=== PATIENT | male | born 1980 | race Caucasian/White ===

== ENCOUNTER 2021-07-12 22:30 | Inpatient (IN) ==
--- NOTE | 2021-07-13 00:18 | Emergency Department Note ---
Impression & Plan Alcohol withdrawal Admit to the [facility] service ED Provider Note NAME: LAURA CASTELLANOS AGE: 41 SEX: M ARRIVES VIA: Walk-In INFORMANT: Patient, patient's cousin ED PROVIDER(S): Raquel Gurrola DO CHIEF COMPLAINT: Requesting detox PLAN: Disposition: Admit to the [facility] service Condition: Stable MEDICAL DECISION MAKING: This is a 41-year-old male patient with a history of alcohol abuse who presents to the emergency department requesting alcohol detox in preparation to go to rehab. The patient has been communicating with [facility] in [facility]. They suggest that he go to a medical facility to initiate the detox for alcohol abuse and then they would consider excepting him for a rehab program. This information came from his cousin with whom he is living. The patient suffers from insomnia and has not been sleeping and is now sleeping here in the emergency department. Once the patient was awake and admits that he is agreeable for inpatient detox and then rehab from alcohol addiction. The patient provided laboratory studies and was agreeable to admission. He is receiving a banana bag and began to have some tremors and was given a milligram of IV Ativan. I discussed the case with the [facility]ist and they will evaluate for further management. Triage Nursing notes reviewed and agree with them. Additional history obtained from his cousin who is at the bedside Prior medical records reviewed Vital Signs: reviewed and unremarkable Differential diagnosis: Alcohol intoxication, alcohol withdrawal, electrolyte abnormality ER treatment provided: IV normal saline IV banana bag IV Ativan Diagnostics interpreted by me: ECG: Sinus bradycardia at a rate of [address] segment elevation or signs of ischemia. There is no ectopy. QTC is 453 ms. Cardiac Monitoring: Normal sinus rhythm at a rate of 61 Laboratory studies: See below Imaging studies: As per my interpretation Portable chest x-ray: No acute pulmonary infiltrates or consolidation HPI: 41/M arrives for evaluation of alcohol intoxication. The patient presents to the emergency department requesting alcohol detox in preparation to go to a rehab facility. The patient's cousin explains that he is an alcoholic and is wanting to go [facility] [place] and they are requesting him to go to a medical facility for detox prior to coming to their facility for rehab. ROS: See above HPI for pertinent positives & negatives. A total of 10 systems reviewed and were otherwise negative. PAST MEDICAL HISTORY:Opioid abuse; significant mental health history PAST SURGICAL HISTORY:See Below FAMILY HISTORY:See Below SOCIAL HISTORY:Patient is currently living with his cousin; he does drink approximately 12 to 16 cans of beer per day over the past 4 to 5 months. HOME MEDICATIONS:See list ALLERGIES:See list VITALS:See Below PHYSICAL EXAMINATION: HEENT: Head - normocephalic and atraumatic Pupils are equal, round, and reactive to light. Extraocular eye muscles are intact, and sclera are anicteric. Nose - moist nasal mucosa without discharge. Mouth - moist buccal mucosa. Oropharynx is nonerythematous and there is no tonsillar exudate or edema noted. Neck: Supple; no JVD, nuchal rigidity, cervical lymphadenopathy, or auscultated bruits. Heart: Regular rate and rhythm. There is a normal S1 and S2 with no murmurs, clicks, or gallops appreciated. Lungs: Clear to auscultation bilaterally with no wheezes, rales, or rhonchi. Abdomen: Soft, completely nontender, nondistended, with good bowel sounds. There are no palpable pulsatile masses or hepatosplenomegaly. There is no guarding, rigidity, or rebound noted. Extremities: No evidence of cyanosis, clubbing, or edema. There are easily palpable peripheral pulses. Skin: warm and dry with good turgor and no rashes. ED COURSE: Times/Reassessments: 2340: The patient was evaluated in room A3. A complete history and physical was performed. Previous electronic medical records were reviewed. The patient was able to give a urine specimen as described above. An IV lock was initiated and labs were drawn as above. A portable chest x-ray was performed. Twelve-lead EKG was obtained. An order was placed for continuous cardiac monitoring. The patient was in a normal sinus rhythm at a rate of 61. A banana bag was initiated once the patient was willing to stay in bed. He became more tremulous and he was given 1 mg of IV Ativan. I discussed this with the [facility]ist and they will evaluate for further management. Raquel Gurrola, Past Med/Surg History Medical History Sinusitis Surgical History No pertinent past surgical history Social History Smoking Status: Never smoker Tobacco Type: Cigarettes Hx Substance Use: Yes Prescribed Medications: Marijuana and Opiates Non- Prescribed Medications: IV Drugs Preferred Language: Cymraes Current Living Situation Comment: Currently living in a homeless jail Feels Safe at Home: Yes Allergies Allergies Allergy/AdvReac Type Severity Reaction Status Date / Time liver extract Allergy Unknown Hives WITH Verified 07/13/21 06:24 liver Home Meds Home Medications Medication Instructions Recorded Confirmed methadone 10 mg/5 mL oral solution 61 mg PO QAM 01/17/21 07/13/21 azelastine 137 mcg (0.1 %) nasal 1 spray INTRANASAL BID 05/22/21 07/12/21 spray aerosol celecoxib 100 mg capsule 100 mg PO BID 07/12/21 07/12/21 dexamethasone 0.1 % eye 2 drp OPB BID 07/13/21 07/13/21 drops,suspension (Maxidex) diclofenac sodium 25 mg 25 mg PO BID 07/13/21 07/13/21 tablet,delayed release Results & Data (ED) Vital Signs Vital Signs - 24 hr 07/12/21 22:33 07/13/21 00:33 07/13/21 02:19 Temperature 36.7 C Temperature Source Temporal Artery Scan Pulse Rate 61 Pulse Rate [Finger] 60 56 L Pulse Rhythm [Finger] Regular Respiratory Rate 20 18 18 Respiratory Effort / Characteristics Non-Labored Spontaneous Non-Labored Spontaneous Respiratory Depth Normal Normal Respiratory Pattern Regular Regular Blood Pressure 115/69 Blood Pressure [Right Arm] 97/64 L 100/62 Blood Pressure Mean 84 Blood Pressure Mean [Right Arm] 75 74 Blood Pressure Position Sitting Blood Pressure Position [Right Arm] Sitting Sitting Pulse Oximetry 95 98 92 Oxygen Delivery Method Room Air Room Air Room Air Sepsis Recent Fever Within 48 Hours No Sepsis New/Unexplained Change in Mental Status N/A Sepsis Action Taken by Nursing No Action Required Laboratory Data Result diagrams: 07/13/21 00:00 07/13/21 00:00 Lab Results 07/12/21 07/12/21 07/13/21 Range/Units 23:58 23:58 00:00 WBC (4.8-10.8) K/uL RBC (4.7-6.1) M/uL Hgb (14.0-18.0) g/dL Hct (42-52) % MCV (80-100) fL MCH (25-34) pg MCHC (32-36) g/dL RDW Std Deviation (36.4-46.3) fL RDW Coeff of Jannet (11.5-14.5) % Plt Count (130-400) K/uL MPV (7.4-10.4) fL Immature Gran % (Auto) % Neut % (Auto) % Lymph % (Auto) % [place] % (Auto) % Eos % (Auto) % Baso % (Auto) % Neut # (Auto) (1.4-6.5) K/uL Lymph # (Auto) (1.2-3.4) K/uL [place] # (Auto) (0.11-0.59) K/uL Eos # (Auto) (0-0.5) K/uL Baso # (Auto) (0-0.2) K/uL Immature Gran # (Auto) (0.00-0.02) K/uL Sodium 138 (136-145) mmol/L Potassium 3.5 (3.5-5.1) mmol/L Chloride 103 (98-107) mmol/L Carbon Dioxide 25 (21-32) mmol/L Anion Gap 10.0 (3-11) BUN 4 L (7-18) mg/dl Creatinine 0.54 L (0.6-1.4) mg/dl Est Cr Clr Drug Dosing 148.7 ml/min Est GFR ( Amer) > 150.0 ml/min Est GFR (Non-Af Amer) 129.5 ml/min BUN/Creatinine Ratio 8.2 L (10-20) Glucose 80 (70-99) mg/dl Calcium 9.0 (8.5-10.1) mg/dl Magnesium 2.2 (1.8-2.4) mg/dl Total Bilirubin 0.4 (0.2-1) mg/dl AST 189 H (15-37) U/L ALT 156 H (12-78) U/L Alkaline Phosphatase 175 H (45-117) U/L Total Protein 7.9 (6.4-8.2) gm/dl Albumin 3.3 L (3.4-5.0) gm/dl Globulin 4.6 H (2.5-4.0) gm/dl Albumin/Globulin Ratio 0.7 L (0.9-2) Urine Color Yellow Urine Appearance Clear (Clear) Urine pH 6.0 (4.5-7.5) Ur Specific [place] 1.003 (1.000-1.030) Urine Protein Negative (Negative) Urine Glucose (UA) Negative (Negative) Urine Ketones Negative (Negative) Urine Blood Negative (Negative) Urine Nitrite Negative (Negative) Urine Bilirubin Negative (Negative) Urine Urobilinogen Negative (Negative) Ur Leukocyte Esterase Negative (Negative) Salicylates (2.8-20) mg/dl Urine Opiates Screen Neg (Neg) Ur Methadone, Qual Pos H (Neg) Acetaminophen (10-30) ug/ml Urine Barbiturates Neg (Neg) Ur Phencyclidine (PCP) Neg (Neg) U Amphetamin/Meth Scrn Neg (Neg) MDMA (Ecstasy) Screen Neg (Neg) U Benzodiazepines Scrn Neg (Neg) Ur Cocaine Metabolite Neg (Neg) U Marijuana (THC) Screen Pos H (Neg) Ethyl Alcohol mg/dL (0-3) mg/dl Lyme Disease IgG Ab (Negative) Lyme Disease IgM Ab (Negative) COVID-19 Eval Order SARS-CoV-2 (PCR) (Negative) 07/13/21 07/13/21 07/13/21 Range/Units 00:00 00:00 00:00 WBC 8.29 (4.8-10.8) K/uL RBC 3.82 L (4.7-6.1) M/uL Hgb 14.0 (14.0-18.0) g/dL Hct 40.8 L (42-52) % MCV 106.8 H (80-100) fL MCH 36.6 H (25-34) pg MCHC 34.3 (32-36) g/dL RDW Std Deviation 54.4 H (36.4-46.3) fL RDW Coeff of Jannet 14.0 (11.5-14.5) % Plt Count 160 (130-400) K/uL MPV 9.6 (7.4-10.4) fL Immature Gran % (Auto) 1.2 % Neut % (Auto) 49.8 % Lymph % (Auto) 38.4 % [place] % (Auto) 7.1 % Eos % (Auto) 2.9 % Baso % (Auto) 0.6 % Neut # (Auto) 4.13 (1.4-6.5) K/uL Lymph # (Auto) 3.18 (1.2-3.4) K/uL [place] # (Auto) 0.59 (0.11-0.59) K/uL Eos # (Auto) 0.24 (0-0.5) K/uL Baso # (Auto) 0.05 (0-0.2) K/uL Immature Gran # (Auto) 0.10 H (0.00-0.02) K/uL Sodium (136-145) mmol/L Potassium (3.5-5.1) mmol/L Chloride (98-107) mmol/L Carbon Dioxide (21-32) mmol/L Anion Gap (3-11) BUN (7-18) mg/dl Creatinine (0.6-1.4) mg/dl Est Cr Clr Drug Dosing ml/min Est GFR ( Amer) ml/min Est GFR (Non-Af Amer) ml/min BUN/Creatinine Ratio (10-20) Glucose (70-99) mg/dl Calcium (8.5-10.1) mg/dl Magnesium (1.8-2.4) mg/dl Total Bilirubin (0.2-1) mg/dl AST (15-37) U/L ALT (12-78) U/L Alkaline Phosphatase (45-117) U/L Total Protein (6.4-8.2) gm/dl Albumin (3.4-5.0) gm/dl Globulin (2.5-4.0) gm/dl Albumin/Globulin Ratio (0.9-2) Urine Color Urine Appearance (Clear) Urine pH (4.5-7.5) Ur Specific [place] (1.000-1.030) Urine Protein (Negative) Urine Glucose (UA) (Negative) Urine Ketones (Negative) Urine Blood (Negative) Urine Nitrite (Negative) Urine Bilirubin (Negative) Urine Urobilinogen (Negative) Ur Leukocyte Esterase (Negative) Salicylates 3.7 (2.8-20) mg/dl Urine Opiates Screen (Neg) Ur Methadone, Qual (Neg) Acetaminophen < 2 L (10-30) ug/ml Urine Barbiturates (Neg) Ur Phencyclidine (PCP) (Neg) U Amphetamin/Meth Scrn (Neg) MDMA (Ecstasy) Screen (Neg) U Benzodiazepines Scrn (Neg) Ur Cocaine Metabolite (Neg) U Marijuana (THC) Screen (Neg) Ethyl Alcohol mg/dL 154.1 H (0-3) mg/dl Lyme Disease IgG Ab (Negative) Lyme Disease IgM Ab (Negative) COVID-19 Eval Order SARS-CoV-2 (PCR) (Negative) 07/13/21 07/13/21 07/13/21 Range/Units 00:00 03:24 03:24 WBC (4.8-10.8) K/uL RBC (4.7-6.1) M/uL Hgb (14.0-18.0) g/dL Hct (42-52) % MCV (80-100) fL MCH (25-34) pg MCHC (32-36) g/dL RDW Std Deviation (36.4-46.3) fL RDW Coeff of Jannet (11.5-14.5) % Plt Count (130-400) K/uL MPV (7.4-10.4) fL Immature Gran % (Auto) % Neut % (Auto) % Lymph % (Auto) % [place] % (Auto) % Eos % (Auto) % Baso % (Auto) % Neut # (Auto) (1.4-6.5) K/uL Lymph # (Auto) (1.2-3.4) K/uL [place] # (Auto) (0.11-0.59) K/uL Eos # (Auto) (0-0.5) K/uL Baso # (Auto) (0-0.2) K/uL Immature Gran # (Auto) (0.00-0.02) K/uL Sodium (136-145) mmol/L Potassium (3.5-5.1) mmol/L Chloride (98-107) mmol/L Carbon Dioxide (21-32) mmol/L Anion Gap (3-11) BUN (7-18) mg/dl Creatinine (0.6-1.4) mg/dl Est Cr Clr Drug Dosing ml/min Est GFR ( Amer) ml/min Est GFR (Non-Af Amer) ml/min BUN/Creatinine Ratio (10-20) Glucose (70-99) mg/dl Calcium (8.5-10.1) mg/dl Magnesium (1.8-2.4) mg/dl Total Bilirubin (0.2-1) mg/dl AST (15-37) U/L ALT (12-78) U/L Alkaline Phosphatase (45-117) U/L Total Protein (6.4-8.2) gm/dl Albumin (3.4-5.0) gm/dl Globulin (2.5-4.0) gm/dl Albumin/Globulin Ratio (0.9-2) Urine Color Urine Appearance (Clear) Urine pH (4.5-7.5) Ur Specific [place] (1.000-1.030) Urine Protein (Negative) Urine Glucose (UA) (Negative) Urine Ketones (Negative) Urine Blood (Negative) Urine Nitrite (Negative) Urine Bilirubin (Negative) Urine Urobilinogen (Negative) Ur Leukocyte Esterase (Negative) Salicylates (2.8-20) mg/dl Urine Opiates Screen (Neg) Ur Methadone, Qual (Neg) Acetaminophen (10-30) ug/ml Urine Barbiturates (Neg) Ur Phencyclidine (PCP) (Neg) U Amphetamin/Meth Scrn (Neg) MDMA (Ecstasy) Screen (Neg) U Benzodiazepines Scrn (Neg) Ur Cocaine Metabolite (Neg) U Marijuana (THC) Screen (Neg) Ethyl Alcohol mg/dL (0-3) mg/dl Lyme Disease IgG Ab Negative (Negative) Lyme Disease IgM Ab Negative (Negative) COVID-19 Eval Order Covid19 at [facility] SARS-CoV-2 (PCR) NEGATIVE (Negative) Administered Medications Dexamethasone Sodium Phosphate (Dexamethasone 0.1% Op Soln 5 Ml Btl) 2 drops OP BID REINALDO Stop: 08/12/21 05:44 Last Admin: 07/13/21 06:08 Dose: 2 drops Documented by: [id number] Discontinued Medications Albuterol (Albut/Ipratrop 3mg/0.5mg Neb 3 Ml Vial) 3 ml NEB NOW STA Stop: 07/13/21 04:01 Last Admin: 07/13/21 04:18 Dose: 3 ml Documented by: [id number] Gabapentin (Gabapentin 600 Mg Tab) 600 mg PO ONE STA Stop: 07/13/21 05:36 Last Admin: 07/13/21 06:07 Dose: 600 mg Documented by: [id number] Gabapentin (Gabapentin 600 Mg Tab) 600 mg PO NOW ONE Stop: 07/13/21 06:09 Last Admin: 07/13/21 06:42 Dose: 600 mg Documented by: [id number] Multivitamins 10 ml/ Thiamine HCl 100 mg/ Folic Acid 1 mg/Sodium Chloride 1,011.2 mls @ 1,011.2 mls/hr IV .Q1H ONE Stop: 07/13/21 03:00 Last Infusion: 07/13/21 04:44 Dose: 0 mls/hr Documented by: [id number] Admin: 07/13/21 03:19 Dose: 1,011.2 mls/hr Documented by: [id number] Lorazepam (Ativan) 1 mg in 2 mls @ 2 mls/min IV NOW STA Stop: 07/13/21 02:55 Last Admin: 07/13/21 03:18 Dose: 2 mls/min Documented by: [id number] Discharge Plan Visit Data Chief Complaint: Detox Request Stated Complaint: ALCOHOL DETOX ED Provider: Raquel Gurrola Discharge Problem: Alcohol withdrawal Discharge Instructions Interventions: ED Discharge Assessment Last Done: 07/13/21 05:59 Discharge Problem: Alcohol withdrawal Qualifiers: Complication of substance-induced condition: with unspecified complication Qualified Code(s): F10.239 - Alcohol dependence with withdrawal, unspecified
[2021-07-13 00:22] LABS: Appearance Urine Clear (Clear); Bilirubin Urine Negative (Negative); Blood Urine Negative (Negative); Color Urine Yellow; Glucose Urine UA Negative (Negative); Ketones Urine Negative (Negative); Leukocyte Esterase Urine Negative (Negative); Nitrite Urine Negative (Negative); Protein Urine Negative (Negative); Specific Gravity Urine 1.003 (1.000-1.030); Urobilinogen Urine Negative (Negative)
[2021-07-13 00:40] LABS: Amphetamines+Metham, Urine Neg (Neg); Barbiturates, Urine Neg (Neg); Benzodiazepine, Urine Neg (Neg); Cocaine, Urine Neg (Neg); MDMA (Ecstacy), Urine Neg (Neg); Methadone, Urine Pos (Neg); Opiate, Urine Neg (Neg); Phencyclidine, Urine Neg (Neg)
[2021-07-13 00:41] LABS: Basophils # (auto) 0.05 K/uL (0-0.2); Basophils % (auto) 0.6 %; Eosinophils # (auto) 0.24 K/uL (0-0.5); Eosinophils % (auto) 2.9 %; Hematocrit (blood only) 40.8 % (42-52); Immature Granulocytes % (auto) 1.2 %; Lymphocytes # (auto) 3.18 K/uL (1.2-3.4); Lymphocytes % (auto) 38.4 %; Mean Corpuscular Hemoglobin 36.6 pg (25-34); Mean Corpuscular Hgb Conc 34.3 g/dL (32-36); Mean Corpuscular Volume 106.8 fL (80-100); Mean Platelet Volume 9.6 fL (7.4-10.4); Monocytes # (auto) 0.59 K/uL (0.11-0.59); Monocytes % (auto) 7.1 %; Neutrophils # (auto) 4.13 K/uL (1.4-6.5); Neutrophils % (auto) 49.8 %; Platelet Count 160 K/uL (130-400); RDW Standard Deviation 54.4 fL (36.4-46.3); Red Blood Count 3.82 M/uL (4.7-6.1); White Blood Count 8.29 K/uL (4.8-10.8)
[2021-07-13 00:59] LABS: Alanine Aminotransferase 156 U/L (12-78); Albumin Level 3.3 gm/dl (3.4-5.0); Aspartate Aminotransferase 189 U/L (15-37); BUN Creatinine Ratio 8.2 (10-20); Blood Urea Nitrogen 4 mg/dl (7-18); Carbon Dioxide 25 mmol/L (21-32); Chloride 103 mmol/L (98-107); Creatinine Clr Calc Pharmacy 148.7 ml/min; Est GFR (African American) > 150.0 ml/min; Est GFR (Non-African American) 129.5 ml/min; Glucose 80 mg/dl (70-99); Magnesium 2.2 mg/dl (1.8-2.4); Potassium 3.5 mmol/L (3.5-5.1); Sodium 138 mmol/L (136-145)
[2021-07-13 01:02] LABS: Albumin Globulin Ratio 0.7 (0.9-2); Alkaline Phosphatase 175 U/L (45-117); Bilirubin,Total 0.4 mg/dl (0.2-1); Globulin 4.6 gm/dl (2.5-4.0); Total Protein 7.9 gm/dl (6.4-8.2)
[2021-07-13 01:16] LABS: Acetaminophen < 2 ug/ml (10-30); Salicylate 3.7 mg/dl (2.8-20)
[2021-07-13] MEDS ORDERED: MULTI-VITAMIN INFUSION 10 ML, THIAMINE HCL 100 MG, FOLIC ACID 1 MG in SODIUM CHLORIDE 0... IV ONE (02:01)
[2021-07-13] MEDS ORDERED: LORazepam 1 MG/2 ML VIAL IV STA (02:54)
--- NOTE | 2021-07-13 03:52 | History & Physical Report ---
Date of Service July 13, 2021 Assessment & Plan (1) Alcohol withdrawal: Plan: Alcohol withdrawal Voluntarily confinement to seek detox prior to alcohol rehab placement Worsening headache Rule out brain abscess Patient claims to have history of chronic ear pain/sinus drainage symptoms. Outpatient ENT documentation from March 2021 however do not support patient's claims. Dexamethasone ophthalmic suspension with saline solution nasal rinse recommended twice a day. Outpatient sinus CT requested for atypical facial pain was done last April 2021 and showed mild paranasal sinus mucosal disease with nasal septum deviation to the right. 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 Patient not to be treated until clean/sober from alcohol/drugs as per records. ongoing tobacco abuse Medical telemetry ROSA S, DT precautions MRI brain RE worsening headache, blurred vertigo symptoms Social service RE discharge planning (discharge to alcohol rehab facility once medically stable ) Nicotine patch as needed DVT prophylaxis. SCDs until brain tumor ruled out Full code Text document was generated using [employer] voice recognition software. It may contain grammatical or spelling errors. Kindly contact undersigned for clarification of any documentation item in question. History of Present Illness Chief Complaint: Detox Primary Care Provider: Jose Bills MD History obtained from patient and records. Medical history significant for chronic pain on methadone, HCV, chronic ear pain/sinus drainage, ongoing alcohol/tobacco abuse. Patient interested in quitting alcohol again and going for rehab. Patient sent to the hospital for possible detox. Patient denies unusual chest pain, S OB. No prior history of alcohol withdrawal seizures as per patient. Denies depression/suicidality. Worsening headache symptoms of about 10 years duration as per patient with vertigo/imbalance symptoms. Patient gives history of recurrent ear infections and sinus drainage. Sinus drainage goes down his throat as per patient causing him to cough. 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 Allergies Allergy/AdvReac Type Severity Reaction Status Date / Time liver extract Allergy Unknown Hives WITH Verified 07/13/21 06:24 liver Home Medications Medication Instructions Recorded Confirmed Type methadone 10 mg/5 mL oral solution 61 mg PO QAM 01/17/21 07/13/21 History azelastine 137 mcg (0.1 %) nasal 1 spray INTRANASAL BID 05/22/21 07/12/21 History spray aerosol celecoxib 100 mg capsule 100 mg PO BID 07/12/21 07/12/21 History diclofenac sodium 25 mg 25 mg PO BID 07/13/21 07/13/21 History tablet,delayed release Past Med/Surg History Medical History Sinusitis Surgical History No pertinent past surgical history Social History Smoking Status: Never smoker Tobacco Type: Cigarettes Hx Substance Use: Yes Prescribed Medications: Marijuana and Opiates Non- Prescribed Medications: IV Drugs Preferred Language: Kosovan Current Living Situation Comment: Currently living in a homeless half-way Feels Safe at Home: Yes Review of Systems Review of Systems: As per HPI, all 10 systems reviewed, all other ROS negative Physical Exam Physical Exam: GENERAL: Slightly irate, no respiratory distress, patient standing up during examination SKIN: Normal color, warm, multiple tattoos and piercings HEENT: [place] palpebral conjunctivae, no ptosis, dry buccal mucosa; no discharge on otoscopic examination of both ears, intact TMs bilateral NECK : Supple, no tenderness CHEST : Decreased breath sounds, occasional expiratory wheezes, no tenderness HEART : Bradycardic, no obvious murmurs ABDOMEN: Some distention, nontender EXTREMITIES : No LE swelling/tenderness, no other conspicuous deformities noted NEUROLOGIC : Coherent, no facial asymmetry, no other gross focality Results & Data Results & [facility] Vital Signs (Past 12 Hours) Vital Signs Temp Pulse Pulse Resp BP BP Pulse Ox 07/13/21 02:19 56 L 18 100/62 92 07/13/21 00:33 60 18 97/64 L 98 07/12/21 22:33 36.7 C 61 20 115/69 95 Laboratory Results Laboratory Results WBC 8.29 K/uL (4.8-10.8) 07/13/21 00:00 RBC 3.82 M/uL (4.7-6.1) L 07/13/21 00:00 Hgb 14.0 g/dL (14.0-18.0) 07/13/21 00:00 Hct 40.8 % (42-52) L 07/13/21 00:00 MCV 106.8 fL (80-100) H 07/13/21 00:00 MCH 36.6 pg (25-34) H 07/13/21 00:00 MCHC 34.3 g/dL (32-36) 07/13/21 00:00 RDW Std Deviation 54.4 fL (36.4-46.3) H 07/13/21 00:00 RDW Coeff of Jannet 14.0 % (11.5-14.5) 07/13/21 00:00 Plt Count 160 K/uL (130-400) 07/13/21 00:00 MPV 9.6 fL (7.4-10.4) 07/13/21 00:00 Immature Gran % (Auto) 1.2 % 07/13/21 00:00 Neut % (Auto) 49.8 % 07/13/21 00:00 Lymph % (Auto) 38.4 % 07/13/21 00:00 [place] % (Auto) 7.1 % 07/13/21 00:00 Eos % (Auto) 2.9 % 07/13/21 00:00 Baso % (Auto) 0.6 % 07/13/21 00:00 Neut # (Auto) 4.13 K/uL (1.4-6.5) 07/13/21 00:00 Lymph # (Auto) 3.18 K/uL (1.2-3.4) 07/13/21 00:00 [place] # (Auto) 0.59 K/uL (0.11-0.59) 07/13/21 00:00 Eos # (Auto) 0.24 K/uL (0-0.5) 07/13/21 00:00 Baso # (Auto) 0.05 K/uL (0-0.2) 07/13/21 00:00 Immature Gran # (Auto) 0.10 K/uL (0.00-0.02) H 07/13/21 00:00 Sodium 138 mmol/L (136-145) 07/13/21 00:00 Potassium 3.5 mmol/L (3.5-5.1) 07/13/21 00:00 Chloride 103 mmol/L (98-107) 07/13/21 00:00 Carbon Dioxide 25 mmol/L (21-32) 07/13/21 00:00 Anion Gap 10.0 (3-11) 07/13/21 00:00 BUN 4 mg/dl (7-18) L 07/13/21 00:00 Creatinine 0.54 mg/dl (0.6-1.4) L 07/13/21 00:00 Est Cr Clr Drug Dosing 148.7 ml/min 07/13/21 00:00 Est GFR ( Amer) > 150.0 ml/min 07/13/21 00:00 Est GFR (Non-Af Amer) 129.5 ml/min 07/13/21 00:00 BUN/Creatinine Ratio 8.2 (10-20) L 07/13/21 00:00 Glucose 80 mg/dl (70-99) 07/13/21 00:00 Calcium 9.0 mg/dl (8.5-10.1) 07/13/21 00:00 Magnesium 2.2 mg/dl (1.8-2.4) 07/13/21 00:00 Total Bilirubin 0.4 mg/dl (0.2-1) 07/13/21 00:00 AST 189 U/L (15-37) H 07/13/21 00:00 ALT 156 U/L (12-78) H 07/13/21 00:00 Alkaline Phosphatase 175 U/L (45-117) H 07/13/21 00:00 Total Protein 7.9 gm/dl (6.4-8.2) 07/13/21 00:00 Albumin 3.3 gm/dl (3.4-5.0) L 07/13/21 00:00 Globulin 4.6 gm/dl (2.5-4.0) H 07/13/21 00:00 Albumin/Globulin Ratio 0.7 (0.9-2) L 07/13/21 00:00 Urine Color Yellow 07/12/21 23:58 Urine Appearance Clear (Clear) 07/12/21 23:58 Urine pH 6.0 (4.5-7.5) 07/12/21 23:58 Ur Specific [place] 1.003 (1.000-1.030) 07/12/21 23:58 Urine Protein Negative (Negative) 07/12/21 23:58 Urine Glucose (UA) Negative (Negative) 07/12/21 23:58 Urine Ketones Negative (Negative) 07/12/21 23:58 Urine Blood Negative (Negative) 07/12/21 23:58 Urine Nitrite Negative (Negative) 07/12/21 23:58 Urine Bilirubin Negative (Negative) 07/12/21 23:58 Urine Urobilinogen Negative (Negative) 07/12/21 23:58 Ur Leukocyte Esterase Negative (Negative) 07/12/21 23:58 Salicylates 3.7 mg/dl (2.8-20) 07/13/21 00:00 Urine Opiates Screen Neg (Neg) 07/12/21 23:58 Ur Methadone, Qual Pos (Neg) H 07/12/21 23:58 Acetaminophen < 2 ug/ml (10-30) L 07/13/21 00:00 Urine Barbiturates Neg (Neg) 07/12/21 23:58 Ur Phencyclidine (PCP) Neg (Neg) 07/12/21 23:58 U Amphetamin/Meth Scrn Neg (Neg) 07/12/21 23:58 MDMA (Ecstasy) Screen Neg (Neg) 07/12/21 23:58 U Benzodiazepines Scrn Neg (Neg) 07/12/21 23:58 Ur Cocaine Metabolite Neg (Neg) 07/12/21 23:58 U Marijuana (THC) Screen Pos (Neg) H 07/12/21 23:58 Ethyl Alcohol mg/dL 154.1 mg/dl (0-3) H 07/13/21 00:00 COVID-19 Eval Order Covid19 at [facility] 07/13/21 03:24 Diagnostic Findings Chest x-ray as per my interpretation no infiltrate EKG as per my interpretation : Rate 50, sinus bradycardia, RAD, T wave abnormality septal leads CT Head initial read: No mass, hemorrhage or acute infarct. Small amount of debris in the left maxillarysinus. Fluid and debris in the sphenoid sinuses. Mastoids are clear. Impression:No acute findings. Sinus disease. CT temporal bone initial read: Right mastoids are clear. Right external auditorycanal clear. Middle ear cavityclear. Ossicles intact. Inner ear structures intact. Left mastoids are clear. Left qa auditor ycanal clear. Left middle ear cavityclear. Left ossicles are intact. Left inner ear structures are intact. TMJs are intact. Fluid and debris in the sphenoid sinuses. Impression: Sinusitis (1) Alcohol withdrawal Complication of substance-induced condition: with unspecified complication Qualified Code(s): F10.239 - Alcohol dependence with withdrawal, unspecified
[2021-07-13] MEDS ORDERED: DEXAMETHASONE 0.1% OPB SCH (03:55)
[2021-07-13] MEDS ORDERED: GABAPENTIN 1200MG ALCOHOL WITHDRAWAL LOAD PO STA (03:59)
[2021-07-13] MEDS ORDERED: ALBUT/IPRATROP 3MG/0.5MG NEB 3 ML VIAL NEB STA (04:00)
[2021-07-13 04:50] LABS: Lyme Ab IgG w/WB Rflx Negative (Negative); Lyme Ab IgM w/WB Rflx Negative (Negative)
[2021-07-13] MEDS ORDERED: GABAPENTIN 600 MG TAB PO STA (05:35)
[2021-07-13] MEDS ORDERED: DEXAMETHASONE 0.1% OP SOLN 5 ML BTL OP SCH (05:45)
[2021-07-13] MEDS ORDERED: ACETAMINOPHEN 325 MG TAB PO PRN (06:08)
[2021-07-13] MEDS ORDERED: ATIVAN IV ALCOHOL WITHDRAWL IV PRN (06:08)
[2021-07-13] MEDS ORDERED: GABAPENTIN 600 MG TAB PO ONE (06:08)
[2021-07-13] MEDS ORDERED: LORazepam 3 MG/6 ML VIAL IV PRN (06:08)
--- NOTE | 2021-07-13 08:30 | XRay Report ---
XR chest 1V portable CLINICAL HISTORY: wheeze COMPARISON STUDY: Chest radiograph January 09, 2021. FINDINGS: Lung volumes are normal. Lungs are clear. There is no pneumothorax or pleural effusion. Car diac size is normal. Mediastinal contours are normal. There is no evidence for pulmonary edema. IMPRESSION: No acute cardiopulmonary findings. ACT 112: Negative or not required by law. Electronically signed by: Homero Medley M.D. 07/13/2021 8:29 AM
--- NOTE | 2021-07-13 08:30 | CT Scan Report ---
CT OF THE HEAD WITHOUT CONTRAST CLINICAL HISTORY: Headache. Ear ache and drainage. COMPARISON STUDY: Head CT December 09, 2007. TECHNIQUE: Helical axial images of the head were obtained without IV contrast. Automated exposure con trol was utilized for the study. A dose lowering technique was utilized adhering to the principles o f ALARA. FINDINGS: No acute intracranial hemorrhage, midline shift or mass effect is present. The ventricular system is unremarkable. The basal cisterns are patent. No extra-axial collections are present. There are no findings to suggest acute dural sinus thrombosis or acute territorial infarct. No significant calvarial abnormalities are present. Note is made of secretions within the left maxillary and left sp henoid sinuses. IMPRESSION: 1. No acute intracranial findings. 2. Secretions within left maxillary and sphenoid sinuses. ACT 112: Negative or not required by law. Electronically signed by: Homero Medley M.D. 07/13/2021 8:28 AM
--- NOTE | 2021-07-13 08:34 | CT Scan Report ---
TEMPORAL BONE CT WITHOUT CONTRAST CLINICAL HISTORY: ear pain, drainage, headache COMPARISON STUDY: Head CT December 08, 2017. TECHNIQUE: Thin cut axial images through the temporal bones were obtained without IV contrast. Sagitt al and coronal reconstructions were viewed. Automated exposure control was utilized for the study. A dose lowering technique was utilized adhering to the principles of ALARA. FINDINGS: Moderate mucosal thickening with secretions within the left maxillary sinus are noted. Ther e are secretions within the left sphenoid sinus. Tiny air-fluid level within the right sphenoid sinus is present. There is ethmoid and right frontal sinus mucosal thickening. Mastoid cells are clear. Te mporal bones are unremarkable. The ossicles are intact. No fluid within the middle ears. No acute fra cture or areas of bony destruction are identified within the temporal bones. External auditory canals are unremarkable by CT. Semicircular canals are intact. IMPRESSION: 1. Unremarkable CT of the temporal bones. 2. Paranasal sinus opacification, as described above. ACT 112: Negative or not required by law. Electronically signed by: Homero Medley M.D. 07/13/2021 8:32 AM
[2021-07-13] MEDS: CELECOXIB 100 MG CAP PO SCH ×2 (10:25→22:00)
[2021-07-13] MEDS: METHADONE ORAL SOLN 2 MG/ML PO SCH (10:25)
[2021-07-13] MEDS: AZELASTINE HCL 0.1% NASAL 200 SPRAYS/27,400 MCG BTL SCH ×2 (10:25→22:00)
[2021-07-13] MEDS: GABAPENTIN 600 MG TAB PO SCH ×2 (11:23→18:01)
[2021-07-13] MEDS: LORazepam 1 MG/2 ML VIAL IV PRN (11:23)
[2021-07-13] MEDS ORDERED: GADOBUTROL 65ML VIAL IV ONE (13:30)
--- NOTE | 2021-07-13 13:39 | Magnetic Resonance Report ---
MR brain wo/w con CLINICAL HISTORY: headache, hx ear/sinus infections TECHNIQUE: Multiplanar and multisequence MR images of the brain were obtained prior to and following administration of gadolinium contrast. Comparison: Prior CT head 07/13/2021 FINDINGS: No abnormal restricted diffusion is identified. The white matter is unremarkable. The ventricular sys tem is normal in appearance. There is no evidence of acute intraparenchymal hemorrhage. No extra axia l fluid collections are seen. There are no masses, mass effect, or midline shift. No abnormal enhance ment is seen. The corpus callosum, pituitary gland, and cerebellar tonsils appear grossly unremarkab le. Flow voids of the major intracranial arterial vessels are identified. Mucous thickening is seen in th e left greater than right maxillary sinuses. IMPRESSION: No acute abnormalities. ACT 112: Negative or not required by law. Electronically signed by: Shamar Du M.D. 07/13/2021 1:38 PM
--- NOTE | 2021-07-13 16:07 | Hospitalist Progress Note ---
Date of Service July 13, 2021 Assessment & Plan (1) Alcohol withdrawal: Plan: Alcohol withdrawal Voluntarily confinement to seek detox prior to alcohol rehab placement Code level 154 Continue gabapentin, thiamine, folic acid Ativan as needed Monitor for DTs Counseled to quit drinking May need rehab placement patient agrees Chronic lower back pain S/P surgery Chronic sinus pain--previously evaluated by ENT as per patient Outpatient sinus CT Apr 2021 showed mild paranasal sinus mucosal disease with nasal septum deviation to the right. We will consult pain management Refuses imaging studies On methadone Worsening headache Likely due to alcohol withdrawal MRI Brain:No acute abnormalities. 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 DVT Px: SCDs for now Code Status Full code Admission and Anticipated Discharge Date Admission Date: July 13, 2021 Subjective Patient is seen and examined at bedside States having chronic back pain and sinus pain Admits to using illegal drugs in the past States that he has been using alcohol to combat his pain Denies any chest pain, shortness of breath, dizziness, nausea, abdominal pain Offers no other complaints Review of Systems Review of Systems: All systems reviewed & are unremarkable except as noted in Subjective Physical Exam Physical Exam: Physical Exam: Vitals signs as noted above General Appearance:Thin, no apparent distress, +Tremor Head: normocephalic, Atraumatic Eyes: normal inspection, EOMI Neck: supple, Trachea midline Respiratory/Chest: Normal breath sounds, CTA Cardiovascular: S1, S2, No murmur Abdomen/GI:Soft, Non tender, Bowel sounds present Back+surgical scar Extremities/Musculoskeletal:normal inspection, no edema Neurologic/Psych:AAOX3, grossly no focal neurological deficits Skin: normal color, warm Results & Data Results & Data ([facility]) Vital Signs (Past 12 Hours) Vital Signs Temp Pulse Pulse Pulse Resp BP BP 07/13/21 15:12 37.1 C 82 17 138/81 07/13/21 11:02 36.9 C 79 16 140/90 07/13/21 10:00 68 07/13/21 09:30 36.8 C 68 20 134/80 07/13/21 08:22 62 16 115/69 07/13/21 07:15 16 125/85 07/13/21 06:08 68 16 125/73 07/13/21 06:00 65 18 90/55 L 07/13/21 04:21 87 20 Pulse Ox 07/13/21 15:12 92 07/13/21 11:02 97 07/13/21 10:00 07/13/21 09:30 94 07/13/21 08:22 94 07/13/21 07:15 94 07/13/21 06:08 93 07/13/21 06:00 92 07/13/21 04:21 94 Laboratory Results Short CBC 07/13/21 Range/Units 00:00 WBC 8.29 (4.8-10.8) K/uL Hgb 14.0 (14.0-18.0) g/dL Hct 40.8 L (42-52) % Plt Count 160 (130-400) K/uL BMP 07/13/21 00:00 Sodium 138 Potassium 3.5 Chloride 103 Carbon Dioxide 25 BUN 4 L Creatinine 0.54 L Glucose 80 Calcium 9.0 Liver Function 07/13/21 Range/Units 00:00 Total Bilirubin 0.4 (0.2-1) mg/dl AST 189 H (15-37) U/L ALT 156 H (12-78) U/L Alkaline Phosphatase 175 H (45-117) U/L Albumin 3.3 L (3.4-5.0) gm/dl Urine 07/12/21 Range/Units 23:58 Urine Color Yellow Urine Appearance Clear (Clear) Urine pH 6.0 (4.5-7.5) Ur Specific [address] 1.003 (1.000-1.030) Urine Protein Negative (Negative) Urine Glucose (UA) Negative (Negative) (1) Alcohol withdrawal Complication of substance-induced condition: with unspecified complication Qualified Code(s): F10.239 - Alcohol dependence with withdrawal, unspecified
[2021-07-13] MEDS ORDERED: LACTATED RINGER'S 1,000 ML IV ONE (20:31)
[2021-07-13] MEDS: LORazepam 2 MG/4 ML VIAL IV PRN (22:01)
[2021-07-14] MEDS ORDERED: POTASSIUM CHLORIDE CRTAB 20 MEQ TABCR PO STA (00:13)
[2021-07-14] MEDS: GABAPENTIN 600 MG TAB PO SCH ×3 (00:38→12:44)
[2021-07-14] MEDS: POTASSIUM CHLORIDE / WTR 10 MEQ/100 ML PLCT IV SCH ×2 (01:55→01:56)
[2021-07-14 05:33] LABS: Basophils # (auto) 0.05 K/uL (0-0.2); Basophils % (auto) 0.7 %; Eosinophils # (auto) 0.12 K/uL (0-0.5); Eosinophils % (auto) 1.6 %; Hematocrit (blood only) 40.2 % (42-52); Hemoglobin 13.7 g/dL (14.0-18.0); Immature Granulocytes # (auto) 0.05 K/uL (0.00-0.02); Immature Granulocytes % (auto) 0.7 %; Lymphocytes % (auto) 32.5 %; Mean Corpuscular Hemoglobin 36.1 pg (25-34); Mean Corpuscular Hgb Conc 34.1 g/dL (32-36); Mean Corpuscular Volume 105.8 fL (80-100); Mean Platelet Volume 9.6 fL (7.4-10.4); Monocytes # (auto) 0.77 K/uL (0.11-0.59); Monocytes % (auto) 10.4 %; Neutrophils # (auto) 3.99 K/uL (1.4-6.5); Neutrophils % (auto) 54.1 %; Platelet Count 148 K/uL (130-400); RDW Coefficient of Variation 13.8 % (11.5-14.5); RDW Standard Deviation 53.7 fL (36.4-46.3); White Blood Count 7.38 K/uL (4.8-10.8)
--- NOTE | 2021-07-14 05:51 | Electrocardiogram Report ---
Test Reason : Blood Pressure : / mmHG Vent. Rate : 052 BPM Atrial Rate : 052 BPM P-R Int : 146 ms QRS Dur : 110 ms QT Int : 488 ms P-R-T Axes : 018 090 064 degrees QTc Int : 453 ms Sinus bradycardia Rightward axis Borderline ECG When compared with ECG of 22-MAY-2021 15:45, Vent. rate has decreased BY 39 BPM Incomplete right bundle branch block is no longer Present Confirmed by Galindo Martinez ([id number]) on 07/14/2021 5:51:37 AM Referred By: REFERRED SELF Confirmed By:Galindo Martinez
[2021-07-14] MEDS: LORazepam 1 MG/2 ML VIAL IV PRN ×3 (06:00→19:37)
[2021-07-14 06:07] LABS: Albumin Level 3.3 gm/dl (3.4-5.0); BUN Creatinine Ratio 11.4 (10-20); Calcium 8.8 mg/dl (8.5-10.1); Creatinine Clr Calc Pharmacy 127.5 ml/min; Est GFR (African American) 140.9 ml/min; Est GFR (Non-African American) 121.5 ml/min; Magnesium 2.2 mg/dl (1.8-2.4); Potassium 4.2 mmol/L (3.5-5.1)
[2021-07-14 06:18] LABS: Albumin Globulin Ratio 0.7 (0.9-2); Bilirubin,Total 0.7 mg/dl (0.2-1); Globulin 4.5 gm/dl (2.5-4.0); Thyroid Stimulating Hormone 2.09 uIu/ml (0.300-4.500); Total Protein 7.8 gm/dl (6.4-8.2)
--- NOTE | 2021-07-14 06:55 | Communication Note ---
Date of Service: July 14, 2021 Overnight developments : Patient noted to have erratic behavior last night. Bottle of methadone prescription later found in patient's shoe. Patient upset about "people going into my room and taking my stuff." Patient contemplating leaving hospital AMA but undecided for now. Hold IV Ativan and gabapentin until patient makes decision. Will relay to AM provider.
[2021-07-14] MEDS: CELECOXIB 100 MG CAP PO SCH ×2 (07:58→23:57)
[2021-07-14] MEDS: LORazepam 0.5 MG TAB PO PRN (07:58)
[2021-07-14] MEDS: MULTIVITAMIN TAB PO SCH ×2 (08:52→09:00)
[2021-07-14] MEDS: FOLIC ACID 1 MG TAB PO SCH ×2 (08:52→09:00)
[2021-07-14] MEDS: METHADONE ORAL SOLN 2 MG/ML PO SCH (08:52)
[2021-07-14] MEDS: AZELASTINE HCL 0.1% NASAL 200 SPRAYS/27,400 MCG BTL SCH ×2 (08:59→21:04)
[2021-07-14] MEDS: THIAMINE HCL 100 MG TAB PO SCH (09:00)
[2021-07-14] MEDS ORDERED: Nursing to Pharmacy Communication SCH (11:45)
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
[2021-07-14] MEDS: DEXAMETHASONE 0.1% OP SOLN 5 ML BTL OP SCH ×3 (13:13→21:04)
--- NOTE | 2021-07-14 16:09 | Hospitalist Progress Note ---
Date of Service July 14, 2021 Assessment & Plan (1) Alcohol withdrawal: Plan: Alcohol withdrawal Voluntarily confinement to seek detox prior to alcohol rehab placement Code level 154 Continue gabapentin, thiamine, folic acid Ativan as needed Remains in withdrawal symptoms We will continue current management Chronic lower back pain S/P surgery Chronic sinus pain--previously evaluated by ENT as per patient Outpatient sinus CT Apr 2021 showed mild paranasal sinus mucosal disease with nasal septum deviation to the right. Appreciate pain therapy input and recommendation We will continue his outpatient pain medications Worsening headache Likely due to alcohol withdrawal MRI Brain:No acute abnormalities. 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 DVT Px: SCDs for now Code Status Full code Admission and Anticipated Discharge Date Admission Date: July 13, 2021 Subjective 07/14/2021 The patient was seen and examined in medical telemetry unit He has been complaining of pain since this morning and remains in tremors He wanted to sign out AMA but after discussion about pain therapy consultation and medications for the withdrawal symptoms he planed to stay Review of Systems Review of Systems: All systems reviewed and are unremarkable except as noted below Physical Exam Physical Exam: Sitting at the edge of the bed with tremors involving the hands Constitutional: + ill appearing and average body habitus Eyes: PERRL, conjunctivae normal, anicteric sclerae ENMT: external ear and nose normal, oropharynx normal Neck: trachea midline, no thyromegaly Respiratory: no respiratory distress Auscultation: lungs clear to auscultation bilaterally Cardiovascular: Rate/Rhythm: regular rate and regular rhythm; not tachycardic Heart Sounds: normal S1 and normal S2; no murmur Extremities: no edema Gastrointestinal (Abdomen): Inspection/Auscultation: normal bowel sounds; abdomen not distended Percussion/Palpation: abdomen soft; abdomen nontender Musculoskeletal: No acute arthritis in any joint Neurologic: Alert, awake and oriented x3. Generally weak. Has tremors involving the outstretched hands with unsteady on gait Results & Data [facility] Vital Signs (Past 12 Hours) Vital Signs Temp Pulse Resp BP BP Pulse Ox 07/14/21 11:15 36.8 C 62 18 145/89 H 94 07/14/21 07:56 37.1 C 66 18 132/87 94 07/14/21 04:55 36.6 C 65 20 146/100 H 94 Laboratory Results Short CBC 07/14/21 Range/Units 05:25 WBC 7.38 (4.8-10.8) K/uL Hgb 13.7 L (14.0-18.0) g/dL Hct 40.2 L (42-52) % Plt Count 148 (130-400) K/uL BMP 07/14/21 05:24 Sodium 137 Potassium 4.2 D Chloride 106 Carbon Dioxide 26 BUN 7 Creatinine 0.63 Glucose 101 H Calcium 8.8 Liver Function 07/14/21 Range/Units 05:24 Total Bilirubin 0.7 (0.2-1) mg/dl AST 121 H (15-37) U/L ALT 147 H (12-78) U/L Alkaline Phosphatase 172 H (45-117) U/L Albumin 3.3 L (3.4-5.0) gm/dl Medications Administered Current Inpatient Medications Acetaminophen (Acetaminophen 325 Mg Tab) 325 mg PO Q6H PRN PRN Reason: Mild Pain Stop: 08/12/21 06:07 Azelastine HCl (Azelastine Hcl 0.1% Nasal 200 Sprays/27,400 Mcg Btl) 1 sprays NA BID REINALDO Stop: 08/12/21 08:59 Last Admin: 07/14/21 08:59 Dose: Not Given Documented by: Celecoxib (Celecoxib 100 Mg Cap) 100 mg PO BID REINALDO Stop: 08/12/21 08:59 Last Admin: 07/14/21 07:58 Dose: 100 mg Documented by: Dexamethasone Sodium Phosphate (Dexamethasone 0.1% Op Soln 5 Ml Btl) 1 drops OP Q6H REINALDO Stop: 08/13/21 09:14 Last Admin: 07/14/21 13:15 Dose: Not Given Documented by: Folic Acid (Folic Acid 1 Mg Tab) 1 mg PO QAM REINALDO Stop: 08/13/21 08:59 Last Admin: 07/14/21 09:00 Dose: Not Given Documented by: Promethazine HCl 6.25 mg/ (Sodium Chloride) 50.25 mls @ 201 mls/hr IV Q6H PRN PRN Reason: Nausea And Vomiting Stop: 08/12/21 06:07 Lorazepam (Ativan) 1 mg in 2 mls @ 2 mls/min IV UD PRN; Protocol PRN Reason: EtOH Withdrawl AWSS Score 6,7 Stop: 08/12/21 06:07 Last Admin: 07/14/21 13:10 Dose: 2 mls/min Documented by: Lorazepam (Ativan) 2 mg in 4 mls @ 4 mls/min IV UD PRN; Protocol PRN Reason: EtOH Withdrawl AWSS Score 8,9 Stop: 08/12/21 06:07 Last Admin: 07/13/21 22:01 Dose: 4 mls/min Documented by: Lorazepam (Ativan) 3 mg in 6 mls @ 4 mls/min IV ONCE PRN; Protocol PRN Reason: EtOH Withdrawl AWSS Score >=10 Stop: 08/12/21 06:07 Ketorolac Tromethamine (Ketorolac Tromethamine 15 Mg/Ml Vial) 15 mg IV Q6H PRN PRN Reason: Pain Stop: 07/18/21 06:07 Lorazepam (Lorazepam 0.5 Mg Tab) 0.5 mg PO TID PRN PRN Reason: Anxiety Stop: 08/12/21 19:16 Last Admin: 07/14/21 07:58 Dose: 0.5 mg Documented by: Methadone HCl (Methadone Oral Soln 2 Mg/Ml) 61 mg PO [facility] Stop: 07/27/21 08:59 Last Admin: 07/14/21 08:52 Dose: 61 mg Documented by: Multivitamins ([facility]ivitamin Tab) [facility] [place]: 08/13/21 08:59 Last Admin: 07/14/21 09:00 Dose: Not Given Documented by: Methadone: Patient's Own Controlled Med 1 1 ea [facility] [place] [place]: 07/29/21 08:59 Thiamine HCl (Thiamine Hcl 100 Mg Tab) 100 mg [facility] [place] Stop: 08/13/21 08:59 Last Admin: 07/14/21 09:00 Dose: Not Given Documented by: (1) Alcohol withdrawal Complication of substance-induced condition: with unspecified complication Qualified Code(s): F10.239 - Alcohol dependence with withdrawal, unspecified
[2021-07-14] MEDS: KETOROLAC TROMETHAMINE 15 MG/ML VIAL IV PRN (18:40)
[2021-07-14] MEDS ORDERED: KETOROLAC TROMETHAMINE 15 MG/ML VIAL IV ONE (23:53)
[2021-07-15] MEDS: LORazepam 0.5 MG TAB PO PRN (00:10)
[2021-07-15] MEDS: PROMETHAZINE HCL 12.5 MG/10 ML UDP PO PRN (01:55)
[2021-07-15] MEDS: DEXAMETHASONE 0.1% OP SOLN 5 ML BTL OP SCH ×4 (03:45→21:09)
[2021-07-15] MEDS: LORazepam 2 MG/4 ML VIAL IV PRN ×3 (03:58→14:50)
[2021-07-15] MEDS ORDERED: GABAPENTIN 600 MG TAB PO SCH (04:00)
[2021-07-15] MEDS: KETOROLAC TROMETHAMINE 15 MG/ML VIAL IV PRN (08:57)
[2021-07-15] MEDS: AZELASTINE HCL 0.1% NASAL 200 SPRAYS/27,400 MCG BTL SCH ×2 (08:58→20:15)
[2021-07-15] MEDS: MULTIVITAMIN TAB PO SCH (08:58)
[2021-07-15] MEDS: FOLIC ACID 1 MG TAB PO SCH (08:58)
[2021-07-15] MEDS: THIAMINE HCL 100 MG TAB PO SCH (08:59)
[2021-07-15] MEDS: CELECOXIB 100 MG CAP PO SCH ×2 (08:59→20:15)
[2021-07-15] MEDS: METHADONE ORAL SOLN 2 MG/ML PO SCH (09:00)
[2021-07-15] MEDS: PROMETHAZINE HCL 6.25 MG in SODIUM CHLORIDE 0.9% 50 ML IV PRN ×2 (14:51→21:10)
--- NOTE | 2021-07-15 18:11 | Hospitalist Progress Note ---
Date of Service July 15, 2021 Assessment & Plan (1) Alcohol withdrawal: Plan: Alcohol withdrawal Voluntarily confinement to seek detox prior to alcohol rehab placement Code level 154 Continue gabapentin, thiamine, folic acid Ativan as needed Remains in withdrawal symptoms We will continue current management Threatening to sign out AMA again Remains mentally clear Will need inpatient rehab and the patient has been agreeable to that Chronic lower back pain S/P surgery Chronic sinus pain--previously evaluated by ENT as per patient Outpatient sinus CT Apr 2021 showed mild paranasal sinus mucosal disease with nasal septum deviation to the right. Appreciate pain therapy input and recommendation We will continue his outpatient pain medications Worsening headache Likely due to alcohol withdrawal MRI Brain:No acute abnormalities. 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 ongoing tobacco abuse Door Person to quit tobacco use DVT Px: SCDs for now Code Status Full code Admission and Anticipated Discharge Date Admission Date: July 13, 2021 Subjective 07/14/2021 The patient was seen and examined in medical telemetry unit He has been complaining of pain since this morning and remains in tremors He wanted to sign out AMA but after discussion about pain therapy consultation and medications for the withdrawal symptoms he planed to stay July 15, 2021 The patient was seen and examined in medical telemetry unit He threatened to sign out AMA again He wants to go out and smoke which was not permitted Review of Systems Review of Systems: All systems reviewed and are unremarkable except as noted below Neurologic: Has tremors on outstretched hands and unsteady gait Physical Exam Physical Exam: Sitting at the edge of the bed with tremors involving the hands Constitutional: + ill appearing and average body habitus Eyes: PERRL, conjunctivae normal, anicteric sclerae ENMT: external ear and nose normal, oropharynx normal Neck: trachea midline, no thyromegaly Respiratory: no respiratory distress Auscultation: lungs clear to auscultation bilaterally Cardiovascular: Rate/Rhythm: regular rate and regular rhythm; not tachycardic Heart Sounds: normal S1 and normal S2; no murmur Extremities: no edema Gastrointestinal (Abdomen): Inspection/Auscultation: normal bowel sounds; abdomen not distended Percussion/Palpation: abdomen soft; abdomen nontender Musculoskeletal: No acute arthritis in any joint Neurologic: Alert, awake and oriented x3, generally weak Results & Data Results & Data ([facility]) Vital Signs (Past 12 Hours) Vital Signs Temp Pulse Pulse Resp BP Pulse Ox 07/15/21 16:00 56 L 07/15/21 14:59 37.3 C 70 20 143/81 H 93 07/15/21 08:00 65 Medications Administered Current Inpatient Medications Acetaminophen (Acetaminophen 325 Mg Tab) 325 mg PO Q6H PRN PRN Reason: Mild Pain Stop: 08/12/21 06:07 Azelastine HCl (Azelastine Hcl 0.1% Nasal 200 Sprays/27,400 Mcg Btl) 1 sprays NA BID REINALDO Stop: 08/12/21 08:59 Last Admin: 07/15/21 08:58 Dose: 1 sprays Documented by: Celecoxib (Celecoxib 100 Mg Cap) 100 mg PO BID REINALDO Stop: 08/12/21 08:59 Last Admin: 07/15/21 08:59 Dose: 100 mg Documented by: Dexamethasone Sodium Phosphate (Dexamethasone 0.1% Op Soln 5 Ml Btl) 1 drops OP Q6H REINALDO Stop: 08/13/21 09:14 Last Admin: 07/15/21 14:51 Dose: Not Given Documented by: Folic Acid (Folic Acid 1 Mg Tab) 1 mg PO QAM REINALDO Stop: 08/13/21 08:59 Last Admin: 07/15/21 08:58 Dose: Not Given Documented by: Promethazine HCl 6.25 mg/ (Sodium Chloride) 50.25 mls @ 201 mls/hr IV Q6H PRN PRN Reason: Nausea And Vomiting Stop: 08/12/21 06:07 Last Infusion: 07/15/21 15:12 Dose: Infused Documented by: Lorazepam (Ativan) 1 mg in 2 mls @ 2 mls/min IV UD PRN; Protocol PRN Reason: EtOH Withdrawl AWSS Score 6,7 Stop: 08/12/21 06:07 Last Admin: 07/14/21 19:37 Dose: 2 mls/min Documented by: Lorazepam (Ativan) 2 mg in 4 mls @ 4 mls/min IV UD PRN; Protocol PRN Reason: EtOH Withdrawl AWSS Score 8,9 Stop: 08/12/21 06:07 Last Admin: 07/15/21 14:50 Dose: 4 mls/min Documented by: Lorazepam (Ativan) 3 mg in 6 mls @ 4 mls/min IV ONCE PRN; Protocol PRN Reason: EtOH Withdrawl AWSS Score >=10 Stop: 08/12/21 06:07 Ketorolac Tromethamine (Ketorolac Tromethamine 15 Mg/Ml Vial) 15 mg IV Q6H PRN PRN Reason: Pain Stop: 07/18/21 06:07 Last Admin: 07/15/21 08:57 Dose: 15 mg Documented by: Lorazepam (Lorazepam 0.5 Mg Tab) 0.5 mg PO TID PRN PRN Reason: Anxiety Stop: 08/12/21 19:16 Last Admin: 07/15/21 00:10 Dose: 0.5 mg Documented by: Methadone HCl (Methadone Oral Soln 2 Mg/Ml) 61 mg PO [facility] Stop: 07/27/21 08:59 Last Admin: 07/15/21 09:00 Dose: 61 mg Documented by: Multivitamins (Multivitamin Tab) 1 tab PO [facility] Stop: 08/13/21 08:59 Last Admin: 07/15/21 08:58 Dose: Not Given Documented by: Methadone: Patient's Own Controlled Med 1 1 ea PO [facility] Stop: 07/29/21 08:59 Last Admin: 07/15/21 09:01 Dose: Not Given Documented by: Promethazine HCl (Promethazine Hcl 12.5 Mg/10 Ml Udp) 12.5 mg PO Q6H PRN PRN Reason: Nausea And Vomiting Stop: 08/14/21 01:03 Last Admin: 07/15/21 01:55 Dose: 12.5 mg Documented by: Thiamine HCl (Thiamine Hcl 100 Mg Tab) 100 mg PO [facility] Stop: 08/13/21 08:59 Last Admin: 07/15/21 08:59 Dose: Not Given Documented by: (1) Alcohol withdrawal Complication of substance-induced condition: with unspecified complication Qualified Code(s): F10.239 - Alcohol dependence with withdrawal, unspecified
[2021-07-15] MEDS: LORazepam 1 MG/2 ML VIAL IV PRN ×2 (20:34→22:54)
[2021-07-15 22:31] LABS: Marijuana Quant, GCMS Urine 842 ng/mL (<5); Methadone, Ur Metabolite 1100 ng/mL (<100)
[2021-07-16] MEDS: LORazepam 0.5 MG TAB PO PRN (00:26)
[2021-07-16] MEDS: LORazepam 2 MG/4 ML VIAL IV PRN (00:57)
[2021-07-16] MEDS: KETOROLAC TROMETHAMINE 15 MG/ML VIAL IV PRN (01:48)
[2021-07-16] MEDS: PROMETHAZINE HCL 12.5 MG/10 ML UDP PO PRN (01:51)
[2021-07-16] MEDS: LORazepam 1 MG/2 ML VIAL IV PRN ×3 (02:44→06:57)
[2021-07-16] MEDS: DEXAMETHASONE 0.1% OP SOLN 5 ML BTL OP SCH ×2 (04:04→09:43)
[2021-07-16] MEDS: METHADONE ORAL SOLN 2 MG/ML PO SCH (09:24)
[2021-07-16] MEDS: CELECOXIB 100 MG CAP PO SCH (09:24)
[2021-07-16] MEDS: FOLIC ACID 1 MG TAB PO SCH (09:42)
[2021-07-16] MEDS: AZELASTINE HCL 0.1% NASAL 200 SPRAYS/27,400 MCG BTL SCH (09:42)
[2021-07-16] MEDS: THIAMINE HCL 100 MG TAB PO SCH (09:42)
[2021-07-16] MEDS: MULTIVITAMIN TAB PO SCH (09:42)
--- NOTE | 2021-07-16 10:19 | Hospitalist Progress Note ---
Date of Service July 16, 2021 Assessment & Plan (1) Alcohol withdrawal: Plan: Alcohol withdrawal Voluntarily confinement to seek detox prior to alcohol rehab placement Code level 154 Continue gabapentin, thiamine, folic acid Ativan as needed We will continue current management Threatening to sign out AMA Remains mentally clear and without any instability with gait Denies any symptoms and does not have any sign of withdrawal He wants to be discharged and will try to go as an inpatient rehab following discharge Chronic lower back pain S/P surgery Chronic sinus pain--previously evaluated by ENT as per patient Outpatient sinus CT Apr 2021 showed mild paranasal sinus mucosal disease with nasal septum deviation to the right. Appreciate pain therapy input and recommendation We will continue his outpatient pain medications Has not been requiring any extra medicine for pain control and will continue his home medication as usual Worsening headache Likely due to alcohol withdrawal MRI Brain:No acute abnormalities. 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 DVT Px: SCDs for now Code Status Full code Discussed with the telehealth case manager who is trying to get him to a inpatient rehab facility The patient has been trying to get into inpatient facility as well He definitely wants to go home and try to go to inpatient facility by himself He understands that process of getting into an inpatient rehab may be difficult for him to arrange as an outpatient Admission and Anticipated Discharge Date Admission Date: July 13, 2021 Subjective 07/14/2021 The patient was seen and examined in medical telemetry unit He has been complaining of pain since this morning and remains in tremors He wanted to sign out AMA but after discussion about pain therapy consultation and medications for the withdrawal symptoms he planed to stay July 15, 2021 The patient was seen and examined in medical telemetry unit He threatened to sign out AMA again He wants to go out and smoke which was not permitted 07/16/2021 The patient was seen and examined in medical telemetry unit He has been agitated and wants to leave the hospital but does not want to sign out AMA He wants to go to inpatient rehab and want to try from home He denies any symptoms of more pain, palpitation or tremors Review of Systems Review of Systems: All systems reviewed and are unremarkable except as noted below Physical Exam Physical Exam: Walking around in the room without any acute symptoms and/or instability with gait Constitutional: average body habitus; not ill appearing Eyes: PERRL, conjunctivae normal, anicteric sclerae ENMT: external ear and nose normal, oropharynx normal Neck: trachea midline, no thyromegaly Respiratory: no respiratory distress Auscultation: lungs clear to auscultation bilaterally Cardiovascular: Rate/Rhythm: regular rate and regular rhythm; not tachycardic Heart Sounds: normal S1 and normal S2; no murmur Extremities: no edema Gastrointestinal (Abdomen): Inspection/Auscultation: normal bowel sounds; abdomen not distended Percussion/Palpation: abdomen soft; abdomen nontender Musculoskeletal: No acute arthritis in any joint Neurologic: Alert, awake and oriented x3. No focal sensory and motor deficit appreciated. No significant tremors involving the outstretched hands Psychiatric: Mood: + anxious mood and + irritable mood Insight: good insight Results & Data Results & Data ([facility]) Vital Signs (Past 12 Hours) Vital Signs Temp Pulse Pulse Resp BP BP Pulse Ox 07/16/21 06:51 36.5 C 85 20 132/92 97 07/16/21 05:00 36.8 C 110 H 20 121/84 98 07/16/21 02:44 36.8 C 89 20 118/80 96 07/16/21 00:54 36.7 C 110 H 20 130/95 96 07/16/21 00:00 93 H 07/15/21 23:53 37.0 C 105 H 18 113/85 96 Medications Administered Current Inpatient Medications Acetaminophen (Acetaminophen 325 Mg Tab) 325 mg PO Q6H PRN PRN Reason: Mild Pain Stop: 08/12/21 06:07 Azelastine HCl (Azelastine Hcl 0.1% Nasal 200 Sprays/27,400 Mcg Btl) 1 sprays NA BID REINALDO Stop: 08/12/21 08:59 Last Admin: 07/16/21 09:42 Dose: 1 sprays Documented by: Celecoxib (Celecoxib 100 Mg Cap) 100 mg PO BID REINALDO Stop: 08/12/21 08:59 Last Admin: 07/16/21 09:24 Dose: 100 mg Documented by: Dexamethasone Sodium Phosphate (Dexamethasone 0.1% Op Soln 5 Ml Btl) 1 drops OP Q6H REINALDO Stop: 08/13/21 09:14 Last Admin: 07/16/21 09:43 Dose: 1 drops Documented by: Folic Acid ([facility]olic Acid 1 Mg Tab) [facility] Stop: 08/13/21 08:59 Last Admin: 07/16/21 09:42 Dose: Not Given Documented by: Promethazine HCl 6.25 mg/ (Sodium Chloride) 50.25 mls @ 201 mls/hr IV Q6H PRN PRN Reason: Nausea And Vomiting Stop: 08/12/21 06:07 Last Infusion: 07/15/21 21:30 Dose: Infused Documented by: Lorazepam (Ativan) 3 mg in 6 mls @ 4 mls/min IV ONCE PRN; Protocol PRN Reason: EtOH Withdrawl AWSS Score >=10 Stop: 08/12/21 06:07 Ketorolac Tromethamine (Ketorolac Tromethamine 15 Mg/Ml Vial) 15 mg IV Q6H PRN PRN Reason: Pain Stop: 07/18/21 06:07 Last Admin: 07/16/21 01:48 Dose: 15 mg Documented by: Lorazepam (Lorazepam 0.5 Mg Tab) 0.5 mg PO TID PRN PRN Reason: Anxiety Stop: 08/12/21 19:16 Last Admin: 07/16/21 00:26 Dose: 0.5 mg Documented by: Methadone HCl (Methadone Oral Soln 2 Mg/Ml) 61 mg PO [facility] Stop: 07/27/21 08:59 Last Admin: 07/16/21 09:24 Dose: 61 mg Documented by: Multivitamins (Multivitamin Tab) 1 [facility] [place] Stop: 08/13/21 08:59 Last Admin: 07/16/21 09:42 Dose: Not Given Documented by: Methadone: Patient's Own Controlled Med 1 1 ea [facility] [place] Stop: 07/29/21 08:59 Last Admin: 07/16/21 09:42 Dose: Not Given Documented by: Promethazine HCl (Promethazine Hcl 12.5 Mg/10 Ml Udp) 12.5 mg PO Q6H PRN PRN Reason: Nausea And Vomiting Stop: 08/14/21 01:03 Last Admin: 07/16/21 01:51 Dose: 12.5 mg Documented by: Thiamine HCl (Thiamine Hcl 100 Mg Tab) [facility] [place] Stop: 08/13/21 08:59 Last Admin: 07/16/21 09:42 Dose: Not Given Documented by: (1) Alcohol withdrawal Complication of substance-induced condition: with unspecified complication Qualified Code(s): F10.239 - Alcohol dependence with withdrawal, unspecified
[2021-07-16] MEDS ORDERED: GABAPENTIN 600 MG TAB PO SCH (16:00)
--- NOTE | 2021-07-17 07:25 | Discharge Summary ---
Date of Service July 17, 2021 Admission HPI Per Admitting Provider History obtained from patient and records. Medical history significant for chronic pain on methadone, HCV, chronic ear pain/sinus drainage, ongoing alcohol/tobacco abuse. Patient interested in quitting alcohol again and going for rehab. Patient sent to the hospital for possible detox. Patient denies unusual chest pain, S OB. No prior history of alcohol withdrawal seizures as per patient. Denies depression/suicidality. Worsening headache symptoms of about 10 years duration as per patient with vertigo/imbalance symptoms. Patient gives history of recurrent ear infections and sinus drainage. Sinus drainage goes down his throat as per patient causing him to cough. 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 Admission Exam Per Admitting Provider Physical Exam: GENERAL: Slightly irate, no respiratory distress, patient standing up during examination SKIN: Normal color, warm, multiple tattoos and piercings HEENT: [place] palpebral conjunctivae, no ptosis, dry buccal mucosa; no discharge on otoscopic examination of both ears, intact TMs bilateral NECK : Supple, no tenderness CHEST : Decreased breath sounds, occasional expiratory wheezes, no tenderness HEART : Bradycardic, no obvious murmurs ABDOMEN: Some distention, nontender EXTREMITIES : No LE swelling/tenderness, no other conspicuous deformities noted NEUROLOGIC : Coherent, no facial asymmetry, no other gross focality Principal Diagnosis Alcohol withdrawal-resolved, alcoholism, chronic pain on methadone, history of HCV Discharge Exam Walking around in the room without any acute symptoms and/or instability with gait Constitutional average body habitus; not ill appearing Eyes PERRL, conjunctivae normal, anicteric sclerae ENMT external ear and nose normal, oropharynx normal Neck trachea midline, no thyromegaly Respiratory no respiratory distress Auscultation: lungs clear to auscultation bilaterally Cardiovascular Rate/Rhythm: regular rate and regular rhythm; not tachycardic Heart Sounds: normal S1 and normal S2; no murmur Extremities: no edema Gastrointestinal (Abdomen) Inspection/Auscultation: normal bowel sounds; abdomen not distended Percussion/Palpation: abdomen soft; abdomen nontender Psychiatric Mood: + anxious mood and + irritable mood Insight: good insight Discharge Data Allergies Allergy/AdvReac Type Severity Reaction Status Date / Time liver extract Allergy Unknown Hives WITH Verified 07/13/21 06:24 liver Consultations 07/13/21 03:11 ED Decision to Admit Stat 07/13/21 14:13 Consult Pain Management Routine Ordered Studies 07/13/21 03:49 CT temporal bones wo con Urgent 07/13/21 03:50 CT head/brain wo con Urgent 07/13/21 06:24 MR brain wo/w con Routine Hospital Course (1) Alcohol withdrawal: Alcohol withdrawal Voluntarily confinement to seek detox prior to alcohol rehab placement Code level 154 Continue gabapentin, thiamine, folic acid Ativan as needed We will continue current management Threatening to sign out AMA Remains mentally clear and without any instability with gait Denies any symptoms and does not have any sign of withdrawal He wants to be discharged and will try to go as an inpatient rehab following discharge Chronic lower back pain S/P surgery Chronic sinus pain--previously evaluated by ENT as per patient Outpatient sinus CT Apr 2021 showed mild paranasal sinus mucosal disease with nasal septum deviation to the right. Appreciate pain therapy input and recommendation We will continue his outpatient pain medications Has not been requiring any extra medicine for pain control and will continue his home medication as usual Worsening headache Likely due to alcohol withdrawal MRI Brain:No acute abnormalities. 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 DVT Px: SCDs for now Code Status Full code Discussed with the caser up who is trying to get him to a inpatient rehab facility The patient has been trying to get into inpatient facility as well He definitely wants to go home and try to go to inpatient facility by himself He understands that process of getting into an inpatient rehab may be difficult for him to arrange as an outpatient Total Time Total Time Spent Total Time Spent (In Minutes): 45 minutes Discharge Plan Discharge Items Patient Disposition: Home - Self-Care Reason For Visit: ETOH WITHDRAWAL Discharge Diagnosis: Alcohol withdrawal-resolved, alcoholism, chronic pain on methadone, history of HCV Condition on Discharge: Fair Activity: Resume your previous activity Non-emergency contact: Primary Care Provider Call non-emergency contact if: you have any medication questions and your symptoms worsen Follow-up/Referrals: Jose Bills MD [Primary Care Provider] - (Your doctor's office will call you with an appointment within 7 days) Diet: Regular Addtl Attending Provider Instructions: Strongly advised to quit alcohol drinking Strongly advised to go to inpatient rehab Keep appointment with your pain therapist as an outpatient Pending Studies at Discharge: No Stand-Alone Forms: [facility], Work/School Release, Smoking Cessation, Suicide Prevention Resources Medications and DC Order Prescriptions: New folic acid 1 mg Tablet 1 mg PO QAM Qty: 30 RF: 0 thiamine HCl (vitamin B1) [Vitamin B-1] 100 mg Tablet 100 mg PO QAM Qty: 30 RF: 0 Continued methadone 10 mg/5 mL Solution 61 mg PO QAM RF: 0 azelastine 137 mcg (0.1 %) aerosol,spray 1 spray intranasal BID RF: 0 celecoxib 100 mg capsule 100 mg PO BID RF: 0 diclofenac sodium 25 mg tablet,delayed release (DR/EC) 25 mg PO BID RF: 0 Discharge Orders: Discharge Order (Routine); Ordered 07/16/21 Ordered By: Phuong Matt Admission Data Admit Date/Time: 07/13/21 03:55 Attending Provider: Phuong Matt Admit Provider: Ricardo Koroma Primary Care Provider: Jose Bills Other Providers: Ricardo Koroma ; Doc Hwang ; Luther Marrero Other Interventions: Discharge Summary Assessment (RN) Last Done: 07/16/21 11:01
== END 2021-07-16 10:45 | disposition home or self-care (01) | DRG 897 ==
LOC: ED 22:30 → EDINP 07-13 03:55 → SUATTDRO 07-13 03:55 → 2W 07-13 05:59

== ENCOUNTER 2021-08-31 16:53 | Inpatient (IN) ==
[2021-08-31] MEDS ORDERED: LORazepam 2 MG/4 ML VIAL IV STA (17:28)
[2021-08-31] MEDS ORDERED: SODIUM CHLORIDE 0.9% 1000ML 1,000 ML IV ONE (17:28)
[2021-08-31] MEDS ORDERED: MULTI-VITAMIN INFUSION 10 ML, THIAMINE HCL 100 MG, FOLIC ACID 1 MG in SODIUM CHLORIDE 0... IV ONE (17:28)
[2021-08-31] MEDS ORDERED: PROMETHAZINE 12.5 MG/50.5 ML BAG IV STA (17:28)
[2021-08-31] MEDS ORDERED: LABETALOL HCL IV 5 MG/ML 20ML IV STA (17:28)
--- NOTE | 2021-08-31 17:37 | Emergency Department Note ---
Impression & Plan Hypertensive urgency, Alcohol abuse, Tachycardia, Acute dehydration, Opiate withdrawal ED Provider Note NAME: LAURA CASTELLANOS AGE: 41 SEX: M : 1980 ARRIVES VIA: Walk-In INFORMANT: [Patient] ED PROVIDER(S): [Catracho Wilkinson MD] CHIEF COMPLAINT: Detox request HISTORY OF PRESENT ILLNESS: The patient is a 41-year-old male who presents to the ER asking for detox. He is withdrawing from alcohol and methadone. His last methadone was several days ago, he has been trying to drink alcohol but has been vomiting so, he is also withdrawing from alcohol. The patient is asking for help. He has an issue with opiate addiction as well as alcoholism. He has been to this ER several times for detox requests. He has been admitted to this hospital a few times for alcohol withdrawal. The patient states that he does have some issues with his sinuses. He has had back surgery. He has had an appendectomy. He has had some inguinal hernia repairs. He states he has no lung or heart disease diagnosed. The patient states that he cannot keep anything down, he feels quite dehydrated. His heart rate has been in the 160s. He is also having loose, watery diarrhea, no bloody diarrhea. He cannot sit still, he is currently rocking back and forth. He hurts everywhere. His symptoms are severe. REVIEW OF SYSTEMS: See HPI for pertinent positives and negatives. A total of ten systems were reviewed and were otherwise negative. PMHx/PSHx: See Below SOCIAL HISTORY: See Below. PHYSICAL EXAM: GENERAL: Patient is in significant distress. Rocking back and forth on the floor in the room. HEENT: No acute trauma, normocephalic atraumatic, mucous membranes dry, no nasal congestion, no scleral icterus. NECK: No stridor, no adenopathy, no meningismus, trachea is midline. LUNGS: Clear to auscultation bilaterally, no wheeze, no rhonchi, breath sounds equal. HEART: Tachycardic, regular rhythm, no murmurs. ABDOMEN: Soft, nontender, bowel sounds positive, no hernias, no peritonitis. EXTREMITIES: No cyanosis or edema, full range of motion of all the joints without pain or difficulty, no signs for acute trauma. NEUROLOGIC: Oriented x 3, no acute motor or sensory deficits, no focal weakness. SKIN: No rash, no jaundice, no diaphoresis. Psychiatric: Cooperative, not suicidal. Voluntary. DIFFERENTIAL DIAGNOSIS: Overdose, withdrawal, dehydration, infection, hypoglycemia, electrolyte abnormalities, cardiac sources, dysrhythmia, intracerebral event, neurologic event, trauma, as well as other pathologies. EMERGENCY DEPARTMENT COURSE/PROCEDURES: ECG: Indication was tachycardia. The ECG shows a normal sinus rhythm with a rate of 98. There is no ST elevation, no PVCs but the QTc is 464. Continuous Cardiac Monitoring: An order was placed for continuous cardiac monitoring. The monitor shows a rate of 102 with sinus tachycardia. Critical Care Note: I have personally spent 47 minutes of critical care time in the direct management of this patient. This includes bedside care, interpretation of diagnostic studies, and testing, discussion with consultants, patient, and family members, and other required patient management activities. This 47 minutes is in excess of all separately billable procedures. MEDICAL DECISION MAKING: There is no leukocytosis. A mild anemia is noted. Platelet count somewhat low at 104. Potassium slightly low 3.4, no kidney failure. There were some subtle liver enzyme elevations, the bilirubin though was normal. Total CK was not elevated making rhabdomyolysis less likely. The patient appeared to be in a euthyroid state. ECG showed a sinus rhythm, no ischemia. Cardiac enzyme testing x1 is not consistent with acute cardiac injury. Aspirin, Tylenol levels were undetectable. Alcohol level was slightly high at 77. Covid testing is pending. Chest film did not show pneumonia, CHF or cardiomegaly. On exam, the patient was hypertensive and tachycardic. He was rocking back and forth. He appeared uncomfortable. The patient was aggressively managed given his vital signs. He was given IV labetalol, IV Ativan, IV Phenergan and IV saline. He received IV saline mixed with multivitamins, thiamine and folate. He was written for additional IV Ativan as needed for breakthrough withdrawal symptoms. Patient's vital signs have improved dramatically. He feels markedly better. He is currently resting comfortably. The patient requires hospitalization. He is suffering from alcohol and opiate withdrawal. Once stabilized inpatient, hopefully, he will be amendable to rehab placement. I did speak with the patient and embedded case manager. The on-call hospitalist was consulted. Past Med/Surg History Medical History Alcohol abuse Facial pain Hepatitis C Lumbago Methadone dependence Sinusitis Surgical History H/O lumbosacral spine surgery Right L3 foraminotomy No pertinent past surgical history Social History Smoking Status: Current every day smoker Tobacco Type: Cigarettes Second Hand Exposure: Yes; Hx Alcohol Use: Yes Alcohol type: beer Hx Substance Use: Yes Prescribed Medications: Marijuana and Opiates Non- Prescribed Medications: IV Drugs Last Used Substance: Unknown Preferred Language: Kazakh Communication Ability: unwilling Leak Hunter Required: No Beliefs That Will Affect Care: None Current Living Situation: Family Current Living Situation Comment: Currently living in a homeless skilled nursing Feels Safe at Home: Yes Assistive Devices: None Allergies Allergies Allergy/AdvReac Type Severity Reaction Status Date / Time liver extract Allergy Unknown Hives WITH Verified 07/21/21 23:49 liver Home Meds Home Medications Medication Instructions Recorded Confirmed methadone 10 mg/5 mL oral solution 61 mg PO QAM 01/17/21 07/21/21 azelastine 137 mcg (0.1 %) nasal 1 spray INTRANASAL BID 05/22/21 07/21/21 spray aerosol celecoxib 100 mg capsule 100 mg PO BID 07/12/21 07/21/21 diclofenac sodium 25 mg 25 mg PO BID 07/13/21 07/21/21 tablet,delayed release dexamethasone 0.1 % eye 4 drp OPR BID 07/21/21 07/21/21 drops,suspension (Maxidex) soft lens adjunctive solutions 07/21/21 07/21/21 Results & Data (ED) Vital Signs Vital Signs - 24 hr 08/31/21 16:56 08/31/21 18:13 Temperature 37.2 C Temperature Source Oral Pulse Rate 147 H Pulse Rate [Finger] 100 H Respiratory Rate 20 18 Respiratory Effort / Characteristics Non-Labored Respiratory Depth Normal Respiratory Pattern Regular Blood Pressure 253/187 H Blood Pressure [Right Arm] 130/89 Blood Pressure Mean 209 Blood Pressure Mean [Right Arm] 102 Blood Pressure Position [Right Arm] Lying Pulse Oximetry 96 92 Oxygen Delivery Method Room Air Room Air Sepsis Recent Fever Within 48 Hours No Sepsis New/Unexplained Change in Mental Status No Sepsis Action Taken by Nursing No Action Required Home Medications Current Medication List: was personally reviewed by hi Laboratory Data Attestation: I reviewed the patient's lab results. Result diagrams: 08/31/21 18:27 08/31/21 18:27 Lab Results 08/31/21 08/31/21 08/31/21 Range/Units 18:27 18:27 18:27 WBC 8.29 (4.8-10.8) K/uL RBC 3.82 L (4.7-6.1) M/uL Hgb 13.6 L (14.0-18.0) g/dL Hct 39.3 L (42-52) % MCV 102.9 H (80-100) fL MCH 35.6 H (25-34) pg MCHC 34.6 (32-36) g/dL RDW Std Deviation 48.1 H (36.4-46.3) fL RDW Coeff of Jannet 12.7 (11.5-14.5) % Plt Count 104 L (130-400) K/uL MPV 8.6 (7.4-10.4) fL Immature Gran % (Auto) 0.2 % Neut % (Auto) 63.9 % Lymph % (Auto) 24.4 % [place] % (Auto) 10.9 % Eos % (Auto) 0.2 % Baso % (Auto) 0.4 % Neut # (Auto) 5.30 (1.4-6.5) K/uL Lymph # (Auto) 2.02 (1.2-3.4) K/uL [place] # (Auto) 0.90 H (0.11-0.59) K/uL Eos # (Auto) 0.02 (0-0.5) K/uL Baso # (Auto) 0.03 (0-0.2) K/uL Immature Gran # (Auto) 0.02 (0.00-0.02) K/uL Sodium 140 (136-145) mmol/L Potassium 3.4 L (3.5-5.1) mmol/L Chloride 107 (98-107) mmol/L Carbon Dioxide 24 (21-32) mmol/L Anion Gap 9.0 (3-11) BUN 6 L (7-18) mg/dl Creatinine 0.61 (0.6-1.4) mg/dl Est Cr Clr Drug Dosing 142.4 ml/min Est GFR ( Amer) 142.8 ml/min Est GFR (Non-Af Amer) 123.2 ml/min BUN/Creatinine Ratio 9.4 L (10-20) Glucose 95 (70-99) mg/dl Calcium 8.0 L (8.5-10.1) mg/dl Total Bilirubin 0.3 (0.2-1) mg/dl AST 62 H (15-37) U/L ALT 88 H (12-78) Alkaline Phosphatase 100 D (45-117) U/L Total Creatine Kinase 101 (39-308) U/L Troponin I < 0.015 (0-0.045) ng/ml Total Protein 7.2 (6.4-8.2) gm/dl Albumin 3.3 L (3.4-5.0) gm/dl Globulin 3.9 (2.5-4.0) gm/dl Albumin/Globulin Ratio 0.8 L (0.9-2) TSH 1.670 (0.300-4.500) uIu/ml Salicylates (2.8-20) mg/dl Acetaminophen (10-30) ug/ml Ethyl Alcohol mg/dL 77.0 H (0-3) mg/dl 08/31/21 Range/Units 18:27 WBC (4.8-10.8) K/uL RBC (4.7-6.1) M/uL Hgb (14.0-18.0) g/dL Hct (42-52) % MCV (80-100) fL MCH (25-34) pg MCHC (32-36) g/dL RDW Std Deviation (36.4-46.3) fL RDW Coeff of Jannet (11.5-14.5) % Plt Count (130-400) K/uL MPV (7.4-10.4) fL Immature Gran % (Auto) % Neut % (Auto) % Lymph % (Auto) % [place] % (Auto) % Eos % (Auto) % Baso % (Auto) % Neut # (Auto) (1.4-6.5) K/uL Lymph # (Auto) (1.2-3.4) K/uL [place] # (Auto) (0.11-0.59) K/uL Eos # (Auto) (0-0.5) K/uL Baso # (Auto) (0-0.2) K/uL Immature Gran # (Auto) (0.00-0.02) K/uL Sodium (136-145) mmol/L Potassium (3.5-5.1) mmol/L Chloride (98-107) mmol/L Carbon Dioxide (21-32) mmol/L Anion Gap (3-11) BUN (7-18) mg/dl Creatinine (0.6-1.4) mg/dl Est Cr Clr Drug Dosing ml/min Est GFR ( Amer) ml/min Est GFR (Non-Af Amer) ml/min BUN/Creatinine Ratio (10-20) Glucose (70-99) mg/dl Calcium (8.5-10.1) mg/dl Total Bilirubin (0.2-1) mg/dl AST (15-37) U/L ALT (12-78) Alkaline Phosphatase (45-117) U/L Total Creatine Kinase (39-308) U/L Troponin I (0-0.045) ng/ml Total Protein (6.4-8.2) gm/dl Albumin (3.4-5.0) gm/dl Globulin (2.5-4.0) gm/dl Albumin/Globulin Ratio (0.9-2) TSH (0.300-4.500) uIu/ml Salicylates < 1.7 L (2.8-20) mg/dl Acetaminophen < 2 L (10-30) ug/ml Ethyl Alcohol mg/dL (0-3) mg/dl Administered Medications Lorazepam (Ativan) 2 mg in 4 mls @ 4 mls/min IV Q30M [facility] Stop: 09/30/21 18:59 Last Admin: 08/31/21 19:10 Dose: 4 mls/min Documented by: [id number] Discontinued Medications Sodium Chloride (Nss 1000ml) 1,000 mls @ 999 mls/hr IV .Q1H1M ONE Stop: 08/31/21 18:28 Last Infusion: 08/31/21 18:18 Dose: 0 mls/hr Documented by: [id number] Admin: 08/31/21 17:43 Dose: 999 mls/hr Documented by: [id number] Lorazepam (Ativan) 2 mg in 4 mls @ 4 mls/min IV NOW STA Stop: 08/31/21 17:29 Last Admin: 08/31/21 18:04 Dose: 4 mls/min Documented by: [id number] Promethazine HCl (Phenergan) 12.5 mg in 50.5 mls @ 202 mls/hr IV NOW STA Stop: 08/31/21 17:42 Last Infusion: 08/31/21 19:19 Dose: 0 mls/hr Documented by: [id number] Admin: 08/31/21 18:05 Dose: 202 mls/hr Documented by: [id number] Multivitamins 10 ml/ Thiamine HCl 100 mg/ Folic Acid 1 mg/Sodium Chloride 1,011.2 mls @ 1,011.2 mls/hr IV .Q1H ONE Stop: 08/31/21 18:27 Last Infusion: 08/31/21 19:19 Dose: 0 mls/hr Documented by: [id number] Admin: 08/31/21 18:18 Dose: 1,011.2 mls/hr Documented by: [id number] Labetalol HCl (Labetalol Hcl Iv 5 Mg/Ml 20ml) 10 mg IV NOW STA Stop: 08/31/21 17:29 Last Admin: 08/31/21 18:04 Dose: 10 mg Documented by: [id number] Cosigned by: [id number] Imaging Data Radiologist's Impression: Chest X-Ray 08/31/21 17:30 XR chest 1V portable CLINICAL HISTORY: sob TECHNIQUE: Single frontal radiograph of the chest was obtained. Comparison: Comparison is made to chest one view 07/13/2021 FINDINGS: No lines and tubes are seen. The cardiomediastinal silhouette is normal. The lungs are clear. No evidence of pleural effusion or pneumothorax. IMPRESSION: No acute chest disease. ACT 112: Negative or not required by law. Electronically signed by: Shamar Du M.D. 08/31/2021 6:47 PM Discharge Plan Visit Data Chief Complaint: Detox Request Stated Complaint: DOSED DOWN FROM [facility] QUICKLY,PAIN ED Provider: Catracho Wilkinson Discharge Problem: Hypertensive urgency, Alcohol abuse, Tachycardia, Acute dehydration, Opiate withdrawal Patient Disposition: Admitted As Inpatient Condition: Fair Forms Stand Alone Forms: [facility], Suicide Prevention Resources Prescriptions Prescriptions: No Action methadone 10 mg/5 mL Solution 61 mg PO QAM RF: 0 azelastine 137 mcg (0.1 %) aerosol,spray 1 spray intranasal BID RF: 0 celecoxib 100 mg capsule 100 mg PO BID RF: 0 diclofenac sodium 25 mg tablet,delayed release (DR/EC) 25 mg PO BID RF: 0 Maxidex 0.1 % drops,suspension 4 drp OPR BID RF: 0 (DME) Rewetting Solution OPHTHALMIC (EYE) RF: 0 Referrals Referrals: Jose Bills MD [Primary Care Provider] -
[2021-08-31 18:47] LABS: Basophils # (auto) 0.03 K/uL (0-0.2); Basophils % (auto) 0.4 %; Eosinophils # (auto) 0.02 K/uL (0-0.5); Eosinophils % (auto) 0.2 %; Hematocrit (blood only) 39.3 % (42-52); Hemoglobin 13.6 g/dL (14.0-18.0); Immature Granulocytes # (auto) 0.02 K/uL (0.00-0.02); Immature Granulocytes % (auto) 0.2 %; Lymphocytes # (auto) 2.02 K/uL (1.2-3.4); Lymphocytes % (auto) 24.4 %; Mean Corpuscular Hemoglobin 35.6 pg (25-34); Mean Corpuscular Hgb Conc 34.6 g/dL (32-36); Mean Corpuscular Volume 102.9 fL (80-100); Mean Platelet Volume 8.6 fL (7.4-10.4); Monocytes % (auto) 10.9 %; Neutrophils % (auto) 63.9 %; Platelet Count 104 K/uL (130-400); RDW Coefficient of Variation 12.7 % (11.5-14.5); RDW Standard Deviation 48.1 fL (36.4-46.3); Red Blood Count 3.82 M/uL (4.7-6.1); White Blood Count 8.29 K/uL (4.8-10.8)
--- NOTE | 2021-08-31 18:49 | XRay Report ---
XR chest 1V portable CLINICAL HISTORY: sob TECHNIQUE: Single frontal radiograph of the chest was obtained. Comparison: Comparison is made to chest one view 07/13/2021 FINDINGS: No lines and tubes are seen. The cardiomediastinal silhouette is normal. The lungs are clear. No evid ence of pleural effusion or pneumothorax. IMPRESSION: No acute chest disease. ACT 112: Negative or not required by law. Electronically signed by: Shamar Du M.D. 08/31/2021 6:47 PM
[2021-08-31 19:04] LABS: Alanine Aminotransferase 88 (12-78); Albumin Level 3.3 gm/dl (3.4-5.0); Aspartate Aminotransferase 62 U/L (15-37); BUN Creatinine Ratio 9.4 (10-20); Blood Urea Nitrogen 6 mg/dl (7-18); Carbon Dioxide 24 mmol/L (21-32); Chloride 107 mmol/L (98-107); Creatinine Clr Calc Pharmacy 142.4 ml/min; Est GFR (African American) 142.8 ml/min; Est GFR (Non-African American) 123.2 ml/min; Glucose 95 mg/dl (70-99); Potassium 3.4 mmol/L (3.5-5.1); Sodium 140 mmol/L (136-145)
[2021-08-31 19:06] LABS: Acetaminophen < 2 ug/ml (10-30); Salicylate < 1.7 mg/dl (2.8-20)
[2021-08-31] MEDS: LORazepam 2 MG/4 ML VIAL IV SCH ×4 (19:10→22:13)
[2021-08-31 19:15] LABS: Albumin Globulin Ratio 0.8 (0.9-2); Alkaline Phosphatase 100 U/L (45-117); Bilirubin,Total 0.3 mg/dl (0.2-1); Creatine Kinase 101 U/L (39-308); Globulin 3.9 gm/dl (2.5-4.0); Total Protein 7.2 gm/dl (6.4-8.2); Troponin I < 0.015 ng/ml (0-0.045)
[2021-08-31] MEDS ORDERED: GABAPENTIN 1200MG ALCOHOL WITHDRAWAL LOAD PO STA (21:39)
[2021-08-31] MEDS ORDERED: GABAPENTIN 1200MG LOADING DOSE PO SCH (23:00)
[2021-09-01] MEDS ORDERED: GABAPENTIN 600 MG TAB PO ONE (00:01)
[2021-09-01] MEDS ORDERED: LORazepam 2 MG/4 ML VIAL IV PRN (00:01)
[2021-09-01] MEDS ORDERED: cloNIDine HCL 0.1 MG TAB PO PRN (00:01)
[2021-09-01] MEDS ORDERED: FAMOTIDINE 40 MG TABLET PO PRN (00:01)
[2021-09-01] MEDS ORDERED: ATIVAN IV ALCOHOL WITHDRAWL IV PRN (00:01)
[2021-09-01] MEDS ORDERED: NITROGLYCERIN SL 0.4 MG/TAB TAB SL PRN (00:01)
[2021-09-01] MEDS ORDERED: ACETAMINOPHEN 325 MG TAB PO PRN (00:01)
[2021-09-01] MEDS ORDERED: ONDANSETRON INJ 2 MG/ML 2 ML VIAL IV PRN (00:01)
[2021-09-01] MEDS ORDERED: LABETALOL HCL IV 5 MG/ML 20ML IV PRN (00:01)
[2021-09-01] MEDS: GABAPENTIN 600MG Q6H DOSE PO SCH ×4 (00:38→11:23)
[2021-09-01] MEDS: LORazepam 1 MG/2 ML VIAL IV PRN (00:46)
[2021-09-01] MEDS: THIAMINE HCL 100 MG in SYRINGE 9 ML IV SCH ×2 (00:55→08:12)
[2021-09-01] MEDS: FOLIC ACID 1 MG in SYRINGE 9.8 ML IV SCH ×2 (00:56→08:12)
--- NOTE | 2021-09-01 03:02 | History and Physical Report ---
DATE OF ADMISSION: 08/31/2021. CHIEF COMPLAINT: Alcohol withdrawal and detox request. HISTORY OF PRESENT ILLNESS: This 41-year-old male with past medical history significant for chronic hepatitis C, alcohol dependence, chronic pain, on methadone, was here a few times for alcohol withdrawal. It looks like he was also in rehab, but he signed out AMA comes again with alcoholism and withdrawal symptoms. Looks like the patient's last methadone was several days ago and was trying to drink alcohol, but has a lot of vomiting so could not drink and was withdrawing l from alcohol and he came to ER asking for help. In the ER, initially when came in, his blood pressure was high, systolic in 250s and diastolic in 180s and tachycardic, heart rate in 150s. His labs are okay. His alcohol level was 77. Troponin was negative. Chest x-ray okay. In the ER, he was given labetalol, banana bag and and 2 doses of 2 mg IV Ativan. Currently, the patient is drowsy, difficult to arouse. Denies any complaints. As per nursing staff, he was very agitated and getting out of bed, initially, but now he is much calmer. The blood pressure also on low side now, afebrile, saturating okay on room air. I could not get any history from the patient currently. ALLERGIES: CELEBREX. PAST MEDICAL HISTORY: As mentioned above. PAST SURGICAL HISTORY: EGD with endoscopic ultrasound, lumbar diskectomy, repair of inguinal hernia remote, appendectomy. MEDICATIONS: From the previous discharge, he was here in the hospital, discharged on 07/17/2021. At the time of discharge, his medications were thiamine 100 mg p.o. a. m., folic acid 1 mg p.o. a.m., methadone 61 mg p.o. a.m., azelastine 1 spray intranasally b.i.d. He was on dexamethasone 4 drops ophthalmic b.i.d., famotidine 40 mg p.o. daily p.r.n. FAMILY HISTORY: Significant for the patient was adopted. SOCIAL HISTORY: As per Epic, smokes 1 pack a day. Alcohol, drinks alcohol. Used to do marijuana, heroin, fentanyl, amphetamines. REVIEW OF SYSTEMS: Could not obtain at this time. PHYSICAL EXAMINATION: GENERAL: The patient is drowsy, somewhat difficult to arouse. VITAL SIGNS: Temperature 36.9, pulse 80, respiratory rate 94, blood pressure is 97/54, oxygen 94% on room air. HEENT: Head is atraumatic. Pupils equal, round and reactive to light. No facial droop. NECK: No JVD. No neck masses seen. CARDIOVASCULAR: S1 and S2 heard. Tachycardia. No murmurs. RESPIRATORY SYSTEM: Normal AP diameter. No accessory muscle use. No wheezing, no crackles. ABDOMEN: Soft, bowel sounds present, nontender, no distention. CENTRAL NERVOUS SYSTEM: Drowsy. Moves extremities. Answers questions with nodding, answers no with nodding his bead. EXTREMITIES: No edema, no erythema. LABORATORY DATA: WBC is 8.2, hemoglobin 13.6, hematocrit 39.3, platelets 104. Sodium 140, potassium 3.4, chloride 107, bicarbonate 24, BUN 6, creatinine 0.6, serum glucose 95, calcium 8, total bilirubin 0.3, AST 62, ALT 88, alkaline phosphatase 100, total creatine is 101. Troponin I less than 0.015. TSH 1.6. Salicylate less than 1.7, acetaminophen less than 2. Alcohol is 77. SARS-CoV-2 negative. IMAGING DATA: Chest x-ray, no acute findings. ASSESSMENT AND PLAN: This is a 41-year-old male who presents for alcohol withdrawal and probably methadone withdrawal and hypertensive urgency. 1. Alcohol withdrawal: The patient with history of alcohol withdrawal symptoms admissions in the past presents with alcohol withdrawal as he was not able to drink because of nausea.. Received Ativan in the ER. We will place him on gabapentin protocol and IV Ativan p.r.n. Received banana bag in the ER. We will continue IV thiamine, IV folic acid, IV fluids and clonidine p.r.n. Monitor. 2. Hypertensive urgency: Most likely from alcohol and methadone withdrawal. Received labetalol in the ER. Blood pressure is on the lower side. We will place him on labetalol p.r.n. Monitor his blood pressure. 3. Chronic pain, on methadone. Currently, the patient is not able to tell how much methadone he has taken or why did he stop taking it. Currently very drowsy. When he is more awake, we will get more information and will be started on his home methadone. Monitor for withdrawal and needs followup 4. Hypokalemia. We will replace. 5. Thrombocytopenia: Mostly from his alcoholism. 6. Transaminitis. We will follow the repeat labs. 7. Deep venous thrombosis prophylaxis: Sequential compression devices for now. DISPOSITION: Admit to tele floor. Level 1 full code. Possible discharge to rehab when stable. Social service to help with discharge planning. Job ID: [id number] [id number]
[2021-09-01] MEDS ORDERED: GABAPENTIN 600 MG TAB PO SCH ×2 (03:45→17:45)
[2021-09-01 05:42] LABS: Hematocrit (blood only) 37.8 % (42-52); Hemoglobin 12.8 g/dL (14.0-18.0); Mean Corpuscular Hemoglobin 35.5 pg (25-34); Mean Corpuscular Hgb Conc 33.9 g/dL (32-36); Mean Corpuscular Volume 104.7 fL (80-100); RDW Coefficient of Variation 12.8 % (11.5-14.5); RDW Standard Deviation 49.2 fL (36.4-46.3); Red Blood Count 3.61 M/uL (4.7-6.1); White Blood Count 7.16 K/uL (4.8-10.8)
[2021-09-01 06:08] LABS: Mean Platelet Volume 9.1 fL (7.4-10.4); Platelet Count 91 K/uL (130-400)
[2021-09-01 06:11] LABS: Basophils # (auto) 0.03 K/uL (0-0.2); Basophils % (auto) 0.4 %; Eosinophils # (auto) 0.07 K/uL (0-0.5); Immature Granulocytes # (auto) 0.02 K/uL (0.00-0.02); Immature Granulocytes % (auto) 0.3 %; Lymphocytes # (auto) 2.42 K/uL (1.2-3.4); Lymphocytes % (auto) 33.8 %; Monocytes # (auto) 0.74 K/uL (0.11-0.59); Monocytes % (auto) 10.3 %; Neutrophils # (auto) 3.88 K/uL (1.4-6.5); Neutrophils % (auto) 54.2 %
[2021-09-01 06:17] LABS: Albumin Level 3.1 gm/dl (3.4-5.0); BUN Creatinine Ratio 17.2 (10-20); Bilirubin Direct 0.2 mg/dl (0-0.2); Calcium 8.1 mg/dl (8.5-10.1); Creatinine Clr Calc Pharmacy 129.3 ml/min; Est GFR (African American) 143.7 ml/min; Potassium 3.6 mmol/L (3.5-5.1)
[2021-09-01 06:19] LABS: Bilirubin,Total 0.6 mg/dl (0.2-1); Total Protein 6.6 gm/dl (6.4-8.2)
[2021-09-01 07:12] LABS: Magnesium 2.1 mg/dl (1.8-2.4)
--- NOTE | 2021-09-01 07:16 | Hospitalist Progress Note ---
Date of Service September 01, 2021 Assessment & Plan (1) Hypertensive urgency: (2) Alcohol abuse: (3) Tachycardia: Plan: This is a 41-year-old male who presents for alcohol withdrawal and probably methadone withdrawal and hypertensive urgency. 1. Alcohol withdrawal: The patient with history of alcohol withdrawal symptoms admissions in the past now presents with alcohol withdrawal as he was not able to drink because of nausea. Received Ativan in the ER. Received banana bag in the ER. Placed on gabapentin protocol and IV Ativan p.r.n.on admission 09/01 - Switch gabapentin protocol into Librium protocol Continue IV thiamine, IV folic acid, IV fluids and clonidine p.r.n. Monitor. 2. Hypertensive urgency: Most likely from alcohol and methadone withdrawal. Received labetalol in the ER. Blood pressure then on the lower side. Cont. labetalol p.r.n. Monitor his blood pressure. 3. Chronic pain, on methadone. On admission -patient not able to tell how much methadone he was taking or why did he stop taking it. He was very drowsy. Monitor for withdrawal and needs followup. Contacted methadone clinic, per their report, patient received 2 mg of methadone on August 29. He was being weaned off, and this was supposed to be his last dose. Plan then to go to rehab, possibly starting on Suboxone. 4. Hypokalemia. replace and monitor 5. Thrombocytopenia: Mostly from his alcoholism. 6. Transaminitis. Cont. to monitor. DVT prophylaxis: Sequential compression devices for now. DISPOSITION: Admit to tele floor.Possible discharge to rehab when stable. Code: Full Admission and Anticipated Discharge Date Admission Date: August 31, 2021 Subjective Patient seen in follow-up of alcohol withdrawal, history of methadone use Currently patient is lying in bed, he is awake, answering questions, however anxious and restless, occasionally jumping on bed No chest pain shortness of breath, however reports abdominal pain, lower quadrants, loose stools yesterday Reports feeling nauseous and uncomfortable yesterday however denies any blood in the stool Review of Systems Review of Systems: All systems reviewed & are unremarkable except as noted in Subjective Physical Exam Physical Exam: GENERAL: thin young M anxious HEENT: NC/AT. EOMI. PERRL. No facial droop. NECK: No JVD. No neck masses seen. CARDIOVASCULAR: S1 and S2 heard. +Tachycardia. No murmurs. RESPIRATORY: Normal AP diameter. No accessory muscle use. No wheezing, no crackles. ABDOMEN: Soft, bowel sounds present, nontender, no distention. NEURO:Awake alert oriented, anxious, restless. Moves extremities. Speech fluent. EXTREMITIES: No edema, no erythema. Results & Data Results & Data ([facility]) Vital Signs (Past 12 Hours) Vital Signs Temp Pulse Pulse Resp BP BP Pulse Ox 09/01/21 06:55 36.5 C 64 18 145/90 H 93 09/01/21 02:48 36.6 C 91 H 22 108/71 95 09/01/21 01:41 89 09/01/21 01:09 36.9 C 88 15 126/87 93 09/01/21 00:01 36.9 C 88 15 126/87 93 08/31/21 23:20 36.8 C 85 18 120/70 95 08/31/21 22:43 90 18 133/79 95 08/31/21 20:23 36.9 C 94 H 18 97/54 L 94 Laboratory Results 09/01/21 09/01/21 08/31/21 Range/Units 05:30 05:30 20:04 WBC 7.16 (4.8-10.8) K/uL RBC 3.61 L (4.7-6.1) M/uL Hgb 12.8 L (14.0-18.0) g/dL Hct 37.8 L (42-52) % MCV 104.7 H (80-100) fL MCH 35.5 H (25-34) pg MCHC 33.9 (32-36) g/dL RDW Std Deviation 49.2 H (36.4-46.3) fL RDW Coeff of Jannet 12.8 (11.5-14.5) % Plt Count 91 L (130-400) K/uL MPV 9.1 (7.4-10.4) fL Immature Gran % (Auto) 0.3 % Neut % (Auto) 54.2 % Lymph % (Auto) 33.8 % [place] % (Auto) 10.3 % Eos % (Auto) 1.0 % Baso % (Auto) 0.4 % Neut # (Auto) 3.88 (1.4-6.5) K/uL Lymph # (Auto) 2.42 (1.2-3.4) K/uL [place] # (Auto) 0.74 H (0.11-0.59) K/uL Eos # (Auto) 0.07 (0-0.5) K/uL Baso # (Auto) 0.03 (0-0.2) K/uL Immature Gran # (Auto) 0.02 (0.00-0.02) K/uL Sodium 139 (136-145) mmol/L Potassium 3.6 (3.5-5.1) mmol/L Chloride 108 H (98-107) mmol/L Carbon Dioxide 26 (21-32) mmol/L Anion Gap 5.0 (3-11) BUN 10 (7-18) mg/dl Creatinine 0.60 (0.6-1.4) mg/dl Est Cr Clr Drug Dosing 129.3 ml/min Est GFR ( Amer) 143.7 ml/min Est GFR (Non-Af Amer) 124.0 ml/min BUN/Creatinine Ratio 17.2 (10-20) Glucose 102 H (70-99) mg/dl Calcium 8.1 L (8.5-10.1) mg/dl Magnesium 2.1 (1.8-2.4) mg/dl Total Bilirubin 0.6 (0.2-1) mg/dl Direct Bilirubin 0.2 (0-0.2) mg/dl AST 64 H (15-37) U/L ALT 82 H (12-78) Alkaline Phosphatase 100 (45-117) U/L Total Creatine Kinase (39-308) U/L Troponin I (0-0.045) ng/ml Total Protein 6.6 (6.4-8.2) gm/dl Albumin 3.1 L (3.4-5.0) gm/dl Globulin (2.5-4.0) gm/dl Albumin/Globulin Ratio (0.9-2) TSH (0.300-4.500) uIu/ml Salicylates (2.8-20) mg/dl Acetaminophen (10-30) ug/ml Ethyl Alcohol mg/dL (0-3) mg/dl SARS-CoV-2, RNA, NAAT NEGATIVE (NEGATIVE) 08/31/21 08/31/21 08/31/21 Range/Units 18:27 18:27 18:27 WBC 8.29 (4.8-10.8) K/uL RBC 3.82 L (4.7-6.1) M/uL Hgb 13.6 L (14.0-18.0) g/dL Hct 39.3 L (42-52) % MCV 102.9 H (80-100) fL MCH 35.6 H (25-34) pg MCHC 34.6 (32-36) g/dL RDW Std Deviation 48.1 H (36.4-46.3) fL RDW Coeff of Jannet 12.7 (11.5-14.5) % Plt Count 104 L (130-400) K/uL MPV 8.6 (7.4-10.4) fL Immature Gran % (Auto) 0.2 % Neut % (Auto) 63.9 % Lymph % (Auto) 24.4 % [place] % (Auto) 10.9 % Eos % (Auto) 0.2 % Baso % (Auto) 0.4 % Neut # (Auto) 5.30 (1.4-6.5) K/uL Lymph # (Auto) 2.02 (1.2-3.4) K/uL [place] # (Auto) 0.90 H (0.11-0.59) K/uL Eos # (Auto) 0.02 (0-0.5) K/uL Baso # (Auto) 0.03 (0-0.2) K/uL Immature Gran # (Auto) 0.02 (0.00-0.02) K/uL Sodium (136-145) mmol/L Potassium (3.5-5.1) mmol/L Chloride (98-107) mmol/L Carbon Dioxide (21-32) mmol/L Anion Gap (3-11) BUN (7-18) mg/dl Creatinine (0.6-1.4) mg/dl Est Cr Clr Drug Dosing ml/min Est GFR ( Amer) ml/min Est GFR (Non-Af Amer) ml/min BUN/Creatinine Ratio (10-20) Glucose (70-99) mg/dl Calcium (8.5-10.1) mg/dl Magnesium (1.8-2.4) mg/dl Total Bilirubin (0.2-1) mg/dl Direct Bilirubin (0-0.2) mg/dl AST (15-37) U/L ALT (12-78) Alkaline Phosphatase (45-117) U/L Total Creatine Kinase (39-308) U/L Troponin I (0-0.045) ng/ml Total Protein (6.4-8.2) gm/dl Albumin (3.4-5.0) gm/dl Globulin (2.5-4.0) gm/dl Albumin/Globulin Ratio (0.9-2) TSH (0.300-4.500) uIu/ml Salicylates < 1.7 L (2.8-20) mg/dl Acetaminophen < 2 L (10-30) ug/ml Ethyl Alcohol mg/dL 77.0 H (0-3) mg/dl SARS-CoV-2, RNA, NAAT (NEGATIVE) 08/31/21 Range/Units 18:27 WBC (4.8-10.8) K/uL RBC (4.7-6.1) M/uL Hgb (14.0-18.0) g/dL Hct (42-52) % MCV (80-100) fL MCH (25-34) pg MCHC (32-36) g/dL RDW Std Deviation (36.4-46.3) fL RDW Coeff of Jannet (11.5-14.5) % Plt Count (130-400) K/uL MPV (7.4-10.4) fL Immature Gran % (Auto) % Neut % (Auto) % Lymph % (Auto) % [place] % (Auto) % Eos % (Auto) % Baso % (Auto) % Neut # (Auto) (1.4-6.5) K/uL Lymph # (Auto) (1.2-3.4) K/uL [place] # (Auto) (0.11-0.59) K/uL Eos # (Auto) (0-0.5) K/uL Baso # (Auto) (0-0.2) K/uL Immature Gran # (Auto) (0.00-0.02) K/uL Sodium 140 (136-145) mmol/L Potassium 3.4 L (3.5-5.1) mmol/L Chloride 107 (98-107) mmol/L Carbon Dioxide 24 (21-32) mmol/L Anion Gap 9.0 (3-11) BUN 6 L (7-18) mg/dl Creatinine 0.61 (0.6-1.4) mg/dl Est Cr Clr Drug Dosing 142.4 ml/min Est GFR ( Amer) 142.8 ml/min Est GFR (Non-Af Amer) 123.2 ml/min BUN/Creatinine Ratio 9.4 L (10-20) Glucose 95 (70-99) mg/dl Calcium 8.0 L (8.5-10.1) mg/dl Magnesium (1.8-2.4) mg/dl Total Bilirubin 0.3 (0.2-1) mg/dl Direct Bilirubin (0-0.2) mg/dl AST 62 H (15-37) U/L ALT 88 H (12-78) Alkaline Phosphatase 100 D (45-117) U/L Total Creatine Kinase 101 (39-308) U/L Troponin I < 0.015 (0-0.045) ng/ml Total Protein 7.2 (6.4-8.2) gm/dl Albumin 3.3 L (3.4-5.0) gm/dl Globulin 3.9 (2.5-4.0) gm/dl Albumin/Globulin Ratio 0.8 L (0.9-2) TSH 1.670 (0.300-4.500) uIu/ml Salicylates (2.8-20) mg/dl Acetaminophen (10-30) ug/ml Ethyl Alcohol mg/dL (0-3) mg/dl SARS-CoV-2, RNA, NAAT (NEGATIVE) Medications Administered Current Inpatient Medications Acetaminophen (Acetaminophen 325 Mg Tab) 650 mg PO Q4H PRN PRN Reason: Pain or Fever Stop: 10/01/21 00:00 Azelastine HCl (Azelastine Hcl 0.1% Nasal 200 Sprays/27,400 Mcg Btl) 1 sprays NA BID [facility] Stop: 10/01/21 08:59 Last Admin: 09/01/21 08:12 Dose: 1 sprays Documented by: Clonidine HCl (Clonidine Hcl 0.1 Mg Tab) 0.1 mg PO Q4H PRN PRN Reason: Hypertension Stop: 10/01/21 00:00 Famotidine (Famotidine 40 Mg Tablet) 40 mg PO DAILY PRN PRN Reason: Acid Reflux Stop: 10/01/21 00:00 Gabapentin (Gabapentin 600mg Q8h Dose) 600 mg PO Q8H [facility] Stop: 09/02/21 11:01 Gabapentin (Gabapentin 600mg Q12h Dose) 600 mg PO Q12H [facility] Stop: 09/03/21 11:01 Gabapentin (Gabapentin 600mg X1 Dose) 600 mg PO Q24H [facility] Stop: 09/04/21 11:01 Gabapentin (Gabapentin 600mg Q6h Dose) 600 mg PO Q6H [facility] Stop: 09/01/21 11:01 Last Admin: 09/01/21 04:43 Dose: 600 mg Documented by: Thiamine HCl 100 mg/ Syringe 10 mls @ 2 mls/min IV QAM [facility] Stop: 10/01/21 00:00 Last Admin: 09/01/21 08:12 Dose: 2 mls/min Documented by: Folic Acid 1 mg/ Syringe 10 mls @ 5 mls/min IV QAM [facility] Stop: 10/01/21 00:00 Last Admin: 09/01/21 08:12 Dose: 5 mls/min Documented by: Lorazepam (Ativan) 1 mg in 2 mls @ 2 mls/min IV UD PRN; Protocol PRN Reason: EtOH Withdrawl AWSS Score 6,7 Stop: 10/01/21 00:00 Last Admin: 09/01/21 00:46 Dose: 2 mls/min Documented by: Lorazepam (Ativan) 2 mg in 4 mls @ 4 mls/min IV UD PRN; Protocol PRN Reason: EtOH Withdrawl AWSS Score 8,9 Stop: 10/01/21 00:00 Lorazepam (Ativan) 3 mg in 6 mls @ 4 mls/min IV ONCE PRN; Protocol PRN Reason: EtOH Withdrawl AWSS Score >=10 Stop: 10/01/21 00:00 Last Admin: 09/01/21 08:27 Dose: 4 mls/min Documented by: Potassium Acetate (Potassium Acetate/Nss) 10 meq in 105 mls @ 105 mls/hr IV Q1H [facility] Stop: 09/01/21 11:29 Labetalol HCl (Labetalol Hcl Iv 5 Mg/Ml 20ml) 10 mg IV Q4H PRN PRN Reason: Hypertension Stop: 10/01/21 00:00 Miscellaneous (Maxidex - Order Awaiting Action) 1 ea N/A QS [facility] Stop: 10/01/21 07:59 Nitroglycerin (Nitroglycerin Sl 0.4 Mg/Tab Tab) 0.4 mg SL UD PRN PRN Reason: Chest Pain Stop: 10/01/21 00:00 Ondansetron HCl (Ondansetron Inj 2 Mg/Ml 2 Ml Vial) 4 mg IV Q6H PRN PRN Reason: Nausea Stop: 10/01/21 00:00
[2021-09-01] MEDS: AZELASTINE HCL 0.1% NASAL 200 SPRAYS/27,400 MCG BTL SCH ×2 (08:12→19:48)
[2021-09-01] MEDS: LORazepam 3 MG/6 ML VIAL IV PRN ×3 (08:27→17:56)
[2021-09-01] MEDS ORDERED: POTASSIUM CHLORIDE CRTAB 20 MEQ TABCR PO STA (10:19)
[2021-09-01 10:33] LABS: Appearance Urine Clear (Clear); Bilirubin Urine Negative (Negative); Blood Urine Negative (Negative); Color Urine Orange; Glucose Urine UA Negative (Negative); Ketones Urine Negative (Negative); Leukocyte Esterase Urine Negative (Negative); Nitrite Urine Negative (Negative); Protein Urine Negative (Negative); Specific Gravity Urine 1.015 (1.000-1.030); Urobilinogen Urine Negative (Negative); pH Urine 6.5 (4.5-7.5)
[2021-09-01] MEDS ORDERED: chlordiazePOXIDE ALCOHOL WITHDRAWL 25MG PO STA (10:56)
[2021-09-01 11:06] LABS: Amphetamines+Metham, Urine Neg (Neg); Barbiturates, Urine Neg (Neg); Benzodiazepine, Urine Neg (Neg); Cocaine, Urine Neg (Neg); MDMA (Ecstacy), Urine Neg (Neg); Methadone, Urine Pos (Neg); Opiate, Urine Neg (Neg); Phencyclidine, Urine Neg (Neg)
[2021-09-01] MEDS: POTASSIUM ACETATE/NSS 10 MEQ/105 ML BAG IV SCH (11:17)
[2021-09-01] MEDS: chlordiazePOXIDE HCl 25 MG CAP PO SCH ×4 (11:21→23:29)
[2021-09-01] MEDS ORDERED: LORazepam 1 MG/2 ML VIAL IV STA (19:34)
[2021-09-01] MEDS ORDERED: LORazepam 2 MG/4 ML VIAL IV STA (19:34)
[2021-09-01] MEDS: GABAPENTIN 600MG Q8H DOSE PO SCH (19:47)
[2021-09-01] MEDS: MAXIDEX OP SCH (19:49)
[2021-09-01] MEDS ORDERED: OLANZapine 10 MG/2.1 ML SDV IM STA (20:51)
[2021-09-02] MEDS: GABAPENTIN 600MG Q8H DOSE PO SCH ×2 (02:33→12:24)
[2021-09-02] MEDS: LORazepam 3 MG/6 ML VIAL IV PRN (03:16)
[2021-09-02] MEDS: chlordiazePOXIDE HCl 25 MG CAP PO SCH (05:10)
--- NOTE | 2021-09-02 08:30 | Hospitalist Progress Note ---
Date of Service September 02, 2021 Assessment & Plan Admission and Anticipated Discharge Date Admission Date: August 31, 2021 Subjective Code nathalie was called last night as patient was agitated and want to leave. Patient withdrawing from alcohol and possibly from methadone. Vitals were stable. Receving iv ativan and librium but seems not helping much. Earlier received a dose of zyprexa which helped but patient refusing anti psychotics. Psychiatry head golf professional nurse talked with patient and he calmed down. He says he wants to go to rehab and requested ativan. Also complains about pain in his right side of face and sinuses and constant blowing of his nose. Earlier two beer cans were found in his back packs.As IV line was not working IM ativan given and he seemed to calmed. Results & Data Results & Data ([facility]) Vital Signs (Past 12 Hours) Vital Signs Temp Pulse Pulse Resp BP Pulse Ox 09/02/21 06:49 79 18 124/86 95 09/02/21 03:59 36.5 C 98 H 18 140/77 97 09/02/21 02:45 36.4 C L 76 14 106/73 96 09/02/21 00:40 104 H 09/01/21 23:33 36.6 C 88 18 136/88 96 09/01/21 22:19 37.0 C 99 H 22 127/83 99 09/01/21 20:33 36.8 C 106 H 24 147/51 H 98
[2021-09-02] MEDS ORDERED: LORazepam 1 MG TAB PO STA (08:42)
[2021-09-02] MEDS ORDERED: POTASSIUM CHLORIDE CRTAB 20 MEQ TABCR PO STA (08:44)
[2021-09-02] MEDS: LORazepam 2 MG/4 ML VIAL IV SCH ×3 (08:59→09:18)
[2021-09-02] MEDS: MAXIDEX OP SCH ×2 (09:13→19:22)
[2021-09-02] MEDS: AZELASTINE HCL 0.1% NASAL 200 SPRAYS/27,400 MCG BTL SCH ×2 (09:13→19:21)
[2021-09-02] MEDS: THIAMINE HCL 100 MG in SYRINGE 9 ML IV SCH (09:14)
[2021-09-02] MEDS: FOLIC ACID 1 MG in SYRINGE 9.8 ML IV SCH (09:14)
[2021-09-02 11:22] LABS: Hematocrit (blood only) 42.1 % (42-52); Hemoglobin 14.5 g/dL (14.0-18.0); Mean Corpuscular Hemoglobin 35.4 pg (25-34); Mean Corpuscular Hgb Conc 34.4 g/dL (32-36); Mean Corpuscular Volume 102.7 fL (80-100); RDW Coefficient of Variation 12.5 % (11.5-14.5); RDW Standard Deviation 46.9 fL (36.4-46.3); White Blood Count 6.61 K/uL (4.8-10.8)
[2021-09-02 11:27] LABS: Mean Platelet Volume 9.3 fL (7.4-10.4); Platelet Count 93 K/uL (130-400)
[2021-09-02 11:41] LABS: Albumin Level 3.6 gm/dl (3.4-5.0); Creatinine Clr Calc Pharmacy 123.1 ml/min; Est GFR (African American) 140.9 ml/min; Est GFR (Non-African American) 121.5 ml/min; Potassium 3.7 mmol/L (3.5-5.1)
[2021-09-02 11:44] LABS: Albumin Globulin Ratio 0.8 (0.9-2); Bilirubin,Total 0.6 mg/dl (0.2-1); Globulin 4.5 gm/dl (2.5-4.0); Phosphorus 3.1 mg/dl (2.5-4.9); Total Protein 8.1 gm/dl (6.4-8.2)
[2021-09-02 11:59] LABS: Magnesium 2.1 mg/dl (1.8-2.4)
[2021-09-02] MEDS ORDERED: LORazepam 2 MG/4 ML VIAL IV STA ×2 (12:12→17:39)
[2021-09-02] MEDS ORDERED: chlordiazePOXIDE HCl 25 MG CAP PO SCH (14:00)
--- NOTE | 2021-09-02 15:37 | Electrocardiogram Report ---
Test Reason : Blood Pressure : / mmHG Vent. Rate : 098 BPM Atrial Rate : 098 BPM P-R Int : 166 ms QRS Dur : 098 ms QT Int : 364 ms P-R-T Axes : 082 098 063 degrees QTc Int : 464 ms Poor data quality, interpretation may be adversely affected Normal sinus rhythm Rightward axis Borderline ECG When compared with ECG of 13-JUL-2021 00:03, Vent. rate has increased BY 46 BPM Confirmed by Thomas Dolan ([id number]) on 09/02/2021 3:37:11 PM Referred By: REFERRED SELF Confirmed By:Thomas Dolan
[2021-09-02] MEDS: LORazepam 1 MG/2 ML VIAL IV PRN (16:18)
--- NOTE | 2021-09-02 17:29 | Hospitalist Progress Note ---
Date of Service September 02, 2021 Assessment & Plan (1) Hypertensive urgency: (2) Alcohol abuse: (3) Tachycardia: Plan: This is a 41-year-old male who presents for alcohol withdrawal and probably methadone withdrawal and hypertensive urgency. 1. Alcohol withdrawal: The patient with history of alcohol withdrawal symptoms admissions in the past now presents with alcohol withdrawal as he was not able to drink because of nausea. Received Ativan in the ER. Received banana bag in the ER. Placed on gabapentin protocol and IV Ativan p.r.n.on admission 09/01 - Switch gabapentin protocol into Librium protocol Continue IV thiamine, IV folic acid, IV fluids and clonidine p.r.n. Monitor. 09/02 overnight patient was code zelaya, received Zyprexa, ibrahima green also involved in care and psychiatry consulted as patient is now interested in rehab 2. Hypertensive urgency: Most likely from alcohol and methadone withdrawal. Received labetalol in the ER. Blood pressure then on the lower side. Cont. labetalol p.r.n. BP is now controlled. Monitor his blood pressure. 3. Chronic pain, on methadone. On admission -patient not able to tell how much methadone he was taking or why did he stop taking it. He was very drowsy. Monitor for withdrawal and needs followup. Contacted methadone clinic, per their report, patient received 2 mg of methadone on August 29. He was being weaned off, and this was supposed to be his last dose. Plan then to go to rehab, possibly starting on Suboxone. 4. Hypokalemia. replace and monitor 5. Thrombocytopenia: Mostly from his alcoholism. 6. Transaminitis. Cont. to monitor. DVT prophylaxis: Sequential compression devices for now. DISPOSITION: Admit to tele floor.Possible discharge to rehab when stable. Code: Full Admission and Anticipated Discharge Date Admission Date: August 31, 2021 Subjective Patient seen in follow-up of alcohol withdrawal, history of methadone use Overnight patient was code zelaya, required Zyprexa Currently patient is lying in bed, he is awake, answering questions, however anxious and restless, occasionally jumping on bed No chest pain, or shortness of breath however reports chronic pain - hx of methadone use Ibrahima green also evaluated the pt Review of Systems Review of Systems: All systems reviewed & are unremarkable except as noted in Subjective Physical Exam Physical Exam: GENERAL: thin young M anxious HEENT: NC/AT. EOMI. PERRL. No facial droop. NECK: No JVD. No neck masses seen. CARDIOVASCULAR: S1 and S2 heard. +Tachycardia. No murmurs. RESPIRATORY: Normal AP diameter. No accessory muscle use. No wheezing, no crackles. ABDOMEN: Soft, bowel sounds present, nontender, no distention. NEURO:Awake alert oriented, anxious, restless. Moves extremities. Speech fluent. EXTREMITIES: No edema, no erythema. Results & Data Results & Data ([facility]) Vital Signs (Past 12 Hours) Vital Signs Temp Pulse Pulse Resp BP Pulse Ox Pulse Ox 09/02/21 16:42 100 09/02/21 15:59 36.5 C 85 20 131/98 100 09/02/21 12:40 36.7 C 95 H 24 134/93 97 09/02/21 08:00 72 09/02/21 06:49 79 18 124/86 95 Laboratory Results 09/02/21 09/02/21 Range/Units 11:10 11:10 WBC 6.61 (4.8-10.8) K/uL RBC 4.10 L (4.7-6.1) M/uL Hgb 14.5 (14.0-18.0) g/dL Hct 42.1 (42-52) % MCV 102.7 H (80-100) fL MCH 35.4 H (25-34) pg MCHC 34.4 (32-36) g/dL RDW Std Deviation 46.9 H (36.4-46.3) fL RDW Coeff of Jannet 12.5 (11.5-14.5) % Plt Count 93 L (130-400) K/uL MPV 9.3 (7.4-10.4) fL Sodium 140 (136-145) mmol/L Potassium 3.7 (3.5-5.1) mmol/L Chloride 111 H (98-107) mmol/L Carbon Dioxide 23 (21-32) mmol/L Anion Gap 6.0 (3-11) BUN 9 (7-18) mg/dl Creatinine 0.63 (0.6-1.4) mg/dl Est Cr Clr Drug Dosing 123.1 ml/min Est GFR ( Amer) 140.9 ml/min Est GFR (Non-Af Amer) 121.5 ml/min BUN/Creatinine Ratio 15.0 (10-20) Glucose 115 H (70-99) mg/dl Calcium 9.0 (8.5-10.1) mg/dl Phosphorus 3.1 (2.5-4.9) mg/dl Magnesium 2.1 (1.8-2.4) mg/dl Total Bilirubin 0.6 (0.2-1) mg/dl AST 64 H (15-37) U/L ALT 90 H (12-78) Alkaline Phosphatase 118 H (45-117) U/L Total Protein 8.1 D (6.4-8.2) gm/dl Albumin 3.6 (3.4-5.0) gm/dl Globulin 4.5 H (2.5-4.0) gm/dl Albumin/Globulin Ratio 0.8 L (0.9-2) Medications Administered Current Inpatient Medications Acetaminophen (Acetaminophen 325 Mg Tab) 650 mg PO Q4H PRN PRN Reason: Pain or Fever Stop: 10/01/21 00:00 Azelastine HCl (Azelastine Hcl 0.1% Nasal 200 Sprays/27,400 Mcg Btl) 1 sprays NA BID [facility] Stop: 10/01/21 08:59 Last Admin: 09/02/21 09:13 Dose: 1 sprays Documented by: Chlordiazepoxide HCl (Chlordiazepoxide Hcl 5 Mg Cap) 5 mg PO Q12H [facility] Stop: 09/05/21 08:01 Chlordiazepoxide HCl (Chlordiazepoxide Hcl 25 Mg Cap) 25 mg PO Q8H [facility] Stop: 09/03/21 06:01 Last Admin: 09/02/21 14:01 Dose: 25 mg Documented by: Chlordiazepoxide HCl (Chlordiazepoxide Hcl 10 Mg Cap) 10 mg PO Q8H [facility] Stop: 09/04/21 06:01 Clonidine HCl (Clonidine Hcl 0.1 Mg Tab) 0.1 mg PO Q4H PRN PRN Reason: Hypertension Stop: 10/01/21 00:00 Famotidine (Famotidine 40 Mg Tablet) 40 mg PO DAILY PRN PRN Reason: Acid Reflux Stop: 10/01/21 00:00 Gabapentin (Gabapentin 600mg Q12h Dose) 600 mg PO Q12H [facility] Stop: 09/03/21 11:01 Gabapentin (Gabapentin 600mg X1 Dose) 600 mg PO Q24H [facility] Stop: 09/04/21 11:01 Thiamine HCl 100 mg/ Syringe 10 mls @ 2 mls/min IV QAM [facility] Stop: 10/01/21 00:00 Last Admin: 09/02/21 09:14 Dose: 2 mls/min Documented by: Folic Acid 1 mg/ Syringe 10 mls @ 5 mls/min IV QAM [facility] Stop: 10/01/21 00:00 Last Admin: 09/02/21 09:14 Dose: 5 mls/min Documented by: Lorazepam (Ativan) 1 mg in 2 mls @ 2 mls/min IV UD PRN; Protocol PRN Reason: EtOH Withdrawl AWSS Score 6,7 Stop: 10/01/21 00:00 Last Admin: 09/02/21 16:18 Dose: 2 mls/min Documented by: Lorazepam (Ativan) 2 mg in 4 mls @ 4 mls/min IV UD PRN; Protocol PRN Reason: EtOH Withdrawl AWSS Score 8,9 Stop: 10/01/21 00:00 Last Admin: 09/02/21 13:33 Dose: 4 mls/min Documented by: Lorazepam (Ativan) 3 mg in 6 mls @ 4 mls/min IV ONCE PRN; Protocol PRN Reason: EtOH Withdrawl AWSS Score >=10 Stop: 10/01/21 00:00 Last Admin: 09/02/21 03:16 Dose: 4 mls/min Documented by: Labetalol HCl (Labetalol Hcl Iv 5 Mg/Ml 20ml) 10 mg IV Q4H PRN PRN Reason: Hypertension Stop: 10/01/21 00:00 Miscellaneous (Maxidex: Non-Formulary Medication) 4 ea OP BID [facility] Stop: 10/01/21 20:59 Last Admin: 09/02/21 09:13 Dose: 4 ea Documented by: Nitroglycerin (Nitroglycerin Sl 0.4 Mg/Tab Tab) 0.4 mg SL UD PRN PRN Reason: Chest Pain Stop: 10/01/21 00:00 Ondansetron HCl (Ondansetron Inj 2 Mg/Ml 2 Ml Vial) 4 mg IV Q6H PRN PRN Reason: Nausea Stop: 10/01/21 00:00
[2021-09-02] MEDS ORDERED: OLANZapine 10 MG/2.1 ML SDV IM STA (18:35)
[2021-09-02] MEDS ORDERED: OLANZapine 10 MG/2.1 ML SDV IM ONE (18:37)
[2021-09-02] MEDS ORDERED: HALOPERIDOL LACTATE 5 MG/ML 1 ML VIAL IV STA (18:55)
[2021-09-02] MEDS ORDERED: GABAPENTIN 600 MG TAB PO SCH (21:45)
[2021-09-02] MEDS ORDERED: GABAPENTIN 600MG Q12H DOSE PO SCH (23:00)
--- NOTE | 2021-09-03 09:37 | Communication Note ---
Date of Service: September 03, 2021 Patient left AMA before he was able to be seen for psychiatry consult. Was seen by psychiatric liason yesterday on 09/02/21 and offered resources.
[2021-09-03 09:52] LABS: Marijuana Quant, GCMS Urine 2053 ng/mL (<5); Methadone, Ur Metabolite 1180 ng/mL (<100)
[2021-09-04] MEDS ORDERED: GABAPENTIN 600 MG TAB PO SCH (09:45)
[2021-09-04] MEDS ORDERED: GABAPENTIN 600MG X1 DOSE PO SCH (11:00)
[2021-09-04] MEDS ORDERED: chlordiazePOXIDE HCl 5 MG CAP PO SCH (20:00)
--- NOTE | 2021-09-09 15:40 | Discharge Summary ---
Date of Service September 03, 2021 Admission HPI Per Admitting Provider This 41-year-old male with past medical history significant for chronic hepatitis C, alcohol dependence, chronic pain, on methadone, was here a few times for alcohol withdrawal. It looks like he was also in rehab, but he signed out AMA comes again with alcoholism and withdrawal symptoms. Looks like the patient's last methadone was several days ago and was trying to drink alcohol, but has a lot of vomiting so could not drink and was withdrawing l from alcohol and he came to ER asking for help. In the ER, initially when came in, his blood pressure was high, systolic in 250s and diastolic in 180s and tachycardic, heart rate in 150s. His labs are okay. His alcohol level was 77. Troponin was negative. Chest x-ray okay. In the ER, he was given labetalol, banana bag and and 2 doses of 2 mg IV Ativan. Currently, the patient is drowsy, difficult to arouse. Denies any complaints. As per nursing staff, he was very agitated and getting out of bed, initially, but now he is much calmer. The blood pressure also on low side now, afebrile, saturating okay on room air. I could not get any history from the patient currently. Admission Exam Per Admitting Provider GENERAL: The patient is drowsy, somewhat difficult to arouse. VITAL SIGNS: Temperature 36.9, pulse 80, respiratory rate 94, blood pressure is 97/54, oxygen 94% on room air. HEENT: Head is atraumatic. Pupils equal, round and reactive to light. No facial droop. NECK: No JVD. No neck masses seen. CARDIOVASCULAR: S1 and S2 heard. Tachycardia. No murmurs. RESPIRATORY SYSTEM: Normal AP diameter. No accessory muscle use. No wheezing, no crackles. ABDOMEN: Soft, bowel sounds present, nontender, no distention. CENTRAL NERVOUS SYSTEM: Drowsy. Moves extremities. Answers questions with nodding, answers no with nodding his bead. EXTREMITIES: No edema, no erythema. Principal Diagnosis Pt left AMA Alcohol withdrawal Discharge Data Allergies Allergy/AdvReac Type Severity Reaction Status Date / Time liver extract Allergy Unknown Hives WITH Verified 08/31/21 20:31 liver Consultations 08/31/21 19:55 ED Decision to Admit Stat 09/02/21 12:05 Consult Psychiatry Routine Hospital Course (1) Hypertensive urgency: (2) Alcohol abuse: (3) Tachycardia: This is a 41-year-old male who presents for alcohol withdrawal and probably methadone withdrawal and hypertensive urgency. 1. Alcohol withdrawal: The patient with history of alcohol withdrawal symptoms admissions in the past now presents with alcohol withdrawal as he was not able to drink because of nausea. Received Ativan in the ER. Received banana bag in the ER. Placed on gabapentin protocol and IV Ativan p.r.n.on admission 09/01 - Switch gabapentin protocol into Librium protocol Continue IV thiamine, IV folic acid, IV fluids and clonidine p.r.n. Monitor. 09/02 overnight patient was code zelaya, received Zyprexa, psych liason also involved in care and psychiatry consulted as patient is now interested in rehab Notified by architectural renderer that pt left AMA overnight. 2. Hypertensive urgency: Most likely from alcohol and methadone withdrawal. Received labetalol in the ER. Blood pressure then on the lower side. Cont. labetalol p.r.n. BP is now controlled. Monitor his blood pressure. 3. Chronic pain, on methadone. On admission -patient not able to tell how much methadone he was taking or why did he stop taking it. He was very drowsy. Monitor for withdrawal and needs followup. Contacted methadone clinic, per their report, patient received 2 mg of methadone on August 29. He was being weaned off, and this was supposed to be his last dose. Plan then to go to rehab, possibly starting on Suboxone. 4. Hypokalemia. replace and monitor 5. Thrombocytopenia: Mostly from his alcoholism. 6. Transaminitis. Cont. to monitor. DVT prophylaxis: Sequential compression devices for now. DISPOSITION: Admitted to tele floor.Possible discharge to rehab when stable. Pt left overnight AMA Total Time Total Time Spent Total Time Spent (In Minutes): 0 Discharge Plan Discharge Items Patient Disposition: Against Medical Advice Reason For Visit: DETOX REQUEST Condition on Discharge: Fair Activity: As commented below Activity Comment: as per pcp Non-emergency contact: Primary Care Provider Follow-up/Referrals: Jose Bills MD [Primary Care Provider] - Pending Studies at Discharge: No Stand-Alone Forms: My [employer], Smoking Cessation Medications and DC Order Prescriptions: Continued famotidine 40 mg tablet 40 mg PO DAILY PRN (Reason: Acid Reflux) RF: 0 azelastine 137 mcg (0.1 %) aerosol,spray 1 spray intranasal BID RF: 0 Maxidex 0.1 % drops,suspension 4 drp OPR BID RF: 0 Discharge Orders: Left Against Medical Advice (Routine); Ordered 09/03/21 Ordered By: Jose Bruce Admission Data Admit Date/Time: 08/31/21 21:39 Attending Provider: Mejia Haskins Admit Provider: Jose Bruce Primary Care Provider: Jose Bills Other Providers: Jose Bruce ; Sheree Clemons ; Jeanine Schilling ; Araceli Eaton ; Jeremi Clark Other Interventions: Discharge Summary Assessment (RN) Last Done: 09/02/21 20:25
== END 2021-09-02 20:25 | disposition left against medical advice (07) | DRG 894 ==
LOC: ED 16:53 → 2S 21:39